=== PATIENT | female | born 1955 | race Caucasian/White ===

== ENCOUNTER → 2017-03-01 | Outpatient (CLI) | payer BC ==
[2017-03-01 12:34] LABS: Basophils % (A) 0 %; CH 29.9; CHCM 32.3; Eosinophils # (A) 0.1 k/uL (0-0.7); Eosinophils % (A) 2 %; HDW 2.27; HGB 12.9 gm/dL (11.4-16.0); Luc # (Auto) 0.11; Luc % (Auto) 2; Lymphocytes # (A) 1.7 k/uL (1.0-4.8); Lymphocytes % (A) 25 %; MCH 29.3 pg (25.0-35.0); MCHC 31.5 g/dL (31.0-37.0); MCV 92.8 fL (80.0-100.0); Mean Platelet Volume 7.1; Monocytes # (A) 0.3 k/uL (0-1.0); Monocytes % (A) 5 %; Neutrophils # (A) 4.4 k/uL (1.3-7.7); Neutrophils % (A) 66 %; RBC 4.42 m/uL (3.80-5.40); RDW 13.5 % (11.5-15.5); WBC 6.6 k/uL (3.8-10.6)
== END | disposition home or self-care (01) ==
LOC: LABPAT 11:49
PROVIDERS: ATTEND Obstetrics & Gynecology
DX: Z01.810 Encounter for preprocedural cardiovascular examination (principal); I10 Essential (primary) hypertension; N95.0 Postmenopausal bleeding; R93.8 Abnormal findings on diagnostic imaging of other specified body structures; Z01.812 Encounter for preprocedural laboratory examination
CPT/HCPCS: 85025; 93005

== ENCOUNTER → 2017-03-06 | Day surgery (SDC) | payer BC ==
[2017-03-02 10:44] VITALS: BMI 33.2
[~2017-03-06] MED LIST: DEXAMETHASONE SOD PHOSPHATE 10 MG/ML 1 ML VIAL IV ONE; HYDROmorphone 1 MG/ML 1 ML SYRINGE IVP PRN; KETOROLAC 30 MG/ML 1 ML VIAL ONE; LACTATED RINGERS 1,000 ML IV SCH; LIDOCAINE 1% 20 ML VIAL (10MG/ML) FOR IV START INTRADERMA PRN; LIDOCAINE 1% INJ 10MG/ML (20 ML MDV) ONE; MIDAZOLAM 2 MG/2 ML VIAL IV PRN; MIDAZOLAM 2 MG/2 ML VIAL ONE; ONDANSETRON 4 MG/2 ML VIAL IVP ONE; PROPOFOL 10 MG/ML 20 ML VIAL IV ONE; Pre Op ABX Message 1 EACH MISC MISCELLANE ONE; SCOPOLAMINE 1.5MG/72HR PATCH TRANSDERM ONE; fentaNYL (PF) 50 MCG/ML 2 ML AMP ONE
[2017-03-06 10:44] LABS: Glucose,Whole Blood 114 mg/dL (75-99)
--- NOTE | 2017-03-06 11:24 | P.OP ---
Date of Procedure: 03/06/17 Preoperative Diagnosis: Thickened endometrium sonographically in postmenopausal woman Postoperative Diagnosis: Pathology pending, abundant polypoid endometrial tissue. Procedure(s) Performed: Hysteroscopy, fractional D and C Implants: Anesthesia: GETA Surgeon: Darlene Giles Executive Asst #1: Stated None Estimated Blood Loss (ml): 25 IV fluids (ml): 300 Urine output (ml): 50 Pathology: other (Endocervical and endometrial curettings under separate cover) Condition: stable Disposition: PACU Indications for Procedure: Operative Findings: Description of Procedure: Patient is brought to the operating suite where a general anesthetic is administered without difficulty. She's placed in the dorsal lithotomy position. The appropriate timeout is performed to assure proper patient and procedural identification. Antibiotics are not deemed necessary. The cervix, vagina and perineal bodies are all prepped and draped in usual sterile fashion. Examination under anesthesia reveals an anteverted uterus that is mobile and smooth, negative adnexa bilaterally. Bladder is drained for 30 mL of clear yellow urine. Weighted speculum was placed into the vagina. Anterior lip of the cervix is grasped with a double-tooth tenaculum. Endocervical curettings are performed and sent to pathology. At this time the uterus sounds to a depth of 10 cm in the anteverted position. The hysteroscope was then introduced and saline is injected to distend the cavity. In inspecting the cavity there are multiple polypoid fragments of tissue noted. No obvious fibroids. The hysteroscope was removed. The cervix is then dilated to 12 mm using the Hanks dilators. A medium sharp curette is used and the cavity was gently and systematically dilated. A large amount of polypoid tissue. Polyp forceps are used and more tissue was removed. Hysteroscope was replaced and the cavity appears to be clear. All sponge needle and enhancement counts are correct at the end of the procedure. Patient is brought back to the recovery room in stable condition with vital signs including blood pressure 126/66, pulse 59, 98% O2 saturation. Toradol is given prior to leaving the operative suite. Complications: none
[2017-03-06 11:33] VITALS: TEMP 97.4
[2017-03-06 12:24] VITALS: RESP 16
[2017-03-06 12:57] VITALS: BP 128/57; PULSE 48
== END | disposition home or self-care (01) ==
LOC: OR 09:52
PROVIDERS: ATTEND Obstetrics & Gynecology
DX: C54.1 Malignant neoplasm of endometrium (principal); N84.1 Polyp of cervix uteri; N85.02 Endometrial intraepithelial neoplasia [EIN]; I10 Essential (primary) hypertension; Z79.899 Other long term (current) drug therapy
CPT/HCPCS: 88305; 58558; J2250; J1100; J2405; J2001; J3010; J1885; J2704

== ENCOUNTER → 2017-04-17 | Outpatient (CLI) | payer BC ==
--- NOTE | 2017-04-23 08:59 | MM ---
Reason for exam: additional evaluation requested from prior study. Last mammogram was performed 9 months ago. History: Patient is postmenopausal and history of other cancer. Family history of breast cancer in paternal grandmother at age 50 and breast cancer in maternal grandmother at age 50. Benign excisional biopsy of the right breast. Physical Findings: Nurse did not find any significant physical abnormalities on exam. MG Diagnostic Mammo w CAD HORTENSIA Bilateral CC and MLO view(s) were taken. Prior study comparison: July 03, 2016, bilateral MG screening mammo w CAD. May 06, 2015, bilateral MG screening mammo w CAD. December 31, 2013, left breast MG diagnostic mammo LT w CAD. June 30, 2013, bilateral digital screening mammo w/CAD. June 26, 2011, bilateral digital screening mammo w/CAD. There are scattered fibroglandular densities. Asymmetric density posteriorly and centrally on the left MLO view appears more defined. Summation shadow is possible but further evaluation is recommended. No significant change on the CC view. ASSESSMENT: Incomplete: need additional imaging evaluation, BI-RAD 0 RECOMMENDATION: Special view mammogram of the left breast.
== END ==
LOC: RADMAMWWP 14:27
PROVIDERS: ATTEND Internal Medicine Hematology & Oncology
DX: R92.8 Other abnormal and inconclusive findings on diagnostic imaging of breast (principal)

== ENCOUNTER → 2017-04-25 | Outpatient (CLI) | payer BC ==
--- NOTE | 2017-04-26 07:49 | MM ---
Reason for exam: additional evaluation requested from abnormal screening. Last mammogram was performed less than 1 month ago. History: Patient is postmenopausal and history of other cancer. Family history of breast cancer in paternal grandmother at age 50 and breast cancer in maternal grandmother at age 50. Benign excisional biopsy of the right breast. Physical Findings: Nurse did not find any significant physical abnormalities on exam. MG Follow Up LT No Charge LM and spot compression MLO view(s) were taken of the left breast. Prior study comparison: April 17, 2017, bilateral MG diagnostic mammo w CAD HORTENSIA. July 03, 2016, bilateral MG screening mammo w CAD. May 06, 2015, bilateral MG screening mammo w CAD. June 26, 2011, bilateral digital screening mammo w/CAD. There are scattered fibroglandular densities. The asymmetric density disperses completely on the spot MLO view. No significant new findings when compared with previous films. These results were verbally communicated with the patient and result sheet given to the patient on 04/25/17. ASSESSMENT: Negative, BI-RAD 1 RECOMMENDATION: Routine screening mammogram of both breasts in 1 year.
== END | disposition home or self-care (01) ==
LOC: RADMAMWWP 14:31
PROVIDERS: ATTEND Internal Medicine Hematology & Oncology
DX: R92.8 Other abnormal and inconclusive findings on diagnostic imaging of breast (principal)

== ENCOUNTER → 2017-10-04 | Outpatient (CLI) | payer BC ==
[2017-10-04 17:07] LABS: Basophils % (A) 0 %; Eosinophils % (A) 1 %; HCT 32.8 % (34.0-46.0); HGB 11.3 gm/dL (11.4-16.0); Lymphocytes # (A) 0.4 k/uL (1.0-4.8); Lymphocytes % (A) 10 %; MCH 31.4 pg (25.0-35.0); MCHC 34.3 g/dL (31.0-37.0); MCV 91.6 fL (80.0-100.0); Mean Platelet Volume 6.7; Monocytes # (A) 0.3 k/uL (0-1.0); Monocytes % (A) 6 %; Neutrophils # (A) 3.5 k/uL (1.3-7.7); Neutrophils % (A) 81 %; Platelet Count 231 k/uL (150-450); Poikilocytosis Slight; RBC 3.58 m/uL (3.80-5.40); RDW 15.4 % (11.5-15.5); WBC 4.3 k/uL (3.8-10.6)
[2017-10-04 17:16] LABS: ALT 27 U/L (9-52); AST 21 U/L (14-36); Albumin 4.4 g/dL (3.5-5.0); Alkaline Phosphatase 89 U/L (38-126); Anion Gap 12 mmol/L; Blood Urea Nitrogen 12 mg/dL (7-17); Calcium 10.3 mg/dL (8.4-10.2); Carbon Dioxide 30 mmol/L (22-30); Chloride 98 mmol/L (98-107); Glucose 125 mg/dL (74-99); Sodium 140 mmol/L (137-145); Total Bilirubin 0.8 mg/dL (0.2-1.3)
== END | disposition home or self-care (01) ==
LOC: LABWHC1 16:22
PROVIDERS: ATTEND Radiology Radiation Oncology
DX: C54.2 Malignant neoplasm of myometrium (principal)
CPT/HCPCS: 36415; 80053; 85025

== ENCOUNTER → 2017-10-31 | Outpatient (CLI) | payer BC ==
--- NOTE | 2017-10-31 15:01 | CT ---
EXAMINATION TYPE: CT ChestAbdPelvis w con DATE OF EXAM: 10/31/2017 COMPARISON: Outside CT 03/23/2017 HISTORY: 62-year-old female f/u endometrial carcinoma TECHNIQUE: Contiguous axial scanning of the chest, abdomen, and pelvis performed with IV Contrast, pa tient injected with 100 mL of Isovue 300. Delayed images through the kidneys were obtained. Coronal/s agittal reconstructions performed. CT DLP: 1482.7 mGycm Automated exposure control for dose reduction was used. FINDINGS: Chest: Focal asymmetry posterior lateral left breast remains unchanged from 03/23/2017. Heart upper limits of normal in size without pericardial effusion. Aorta normal caliber with conventional vessel branching anatomy. No thoracic lymphadenopathy by CT size criteria. Evaluation of the lungs shows mild dependent atelectasis at the lung bases. No consolidation or pleur al effusion. ABDOMEN: No focal liver lesion or biliary ductal dilatation. Portal venous system is patent. Gallbladder, adrenal glands, kidneys, spleen, and pancreas appear within normal limits. No dilated small bowel, free fluid, or free air. No mesenteric or retroperitoneal lymphadenopathy. Oral contrast has progressed to the mid transverse colon. There is mild overall stool burden. No saniya colonic inflammatory change. Pelvis: Interval hysterectomy and bilateral salpingo-oophorectomy. There is some nodularity measuring 1.1 cm and smaller in both adnexa which seems to be been present on the presurgical study where these resemb le periuterine varices. No abnormal fluid collection in the pelvis or pelvic lymphadenopathy seen. Bones: Mild degenerative changes at the pubic symphysis and hips. Facet arthropathy lower lumbar spine. No o sseous destructive process seen. IMPRESSION: 1. INTERVAL HYSTERECTOMY AND BILATERAL SALPINGO-OOPHORECTOMY. 2. SOME NODULARITY MEASURING 1.1 CM AND SMALLER IN BOTH ADNEXA WHICH SEEMS TO BE PRESENT ON THE PRESU RGICAL STUDY WHERE THEY RESEMBLED PARAUTERINE VARICES. A PRECAUTIONARY SHORT INTERVAL FOLLOW-UP CAN B E PERFORMED. 3. OTHERWISE, NO FINDINGS OF METASTATIC DISEASE IN THE CHEST, ABDOMEN, OR PELVIS.
== END ==
LOC: RADCTMAIN 11:28
PROVIDERS: ATTEND Internal Medicine Hematology & Oncology
DX: C54.9 Malignant neoplasm of corpus uteri, unspecified (principal); N94.89 Other specified conditions associated with female genital organs and menstrual cycle; Z90.710 Acquired absence of both cervix and uterus
CPT/HCPCS: 71260; 74177; Q9967

== ENCOUNTER → 2018-05-15 | Outpatient (CLI) | payer BC ==
--- NOTE | 2018-05-15 13:56 | CT ---
EXAMINATION TYPE: CT ChestAbdPelvis w con DATE OF EXAM: 05/15/2018 COMPARISON: Previous CT 10/31/2017 HISTORY: Follow up scan. no complaints at time of scan CT DLP: 1773.4 mGycm Automated exposure control for dose reduction was used. CONTRAST: CT scan of the chest, abdomen and pelvis is performed with Oral Contrast and with IV Contrast, patien t injected with 100 mL of Isovue 300. FINDINGS: LUNGS: The lungs are grossly clear, there is no concerning parenchymal mass or nodule identified. T here is no pleural effusion or pneumothorax seen. The tracheobronchial tree is patent. MEDIASTINUM: There are no greater than 1 cm hilar or mediastinal lymph nodes. No pericardial effusi on is seen. AORTA: No significant abnormality is seen. OTHER: No additional significant abnormality is seen. LIVER/GB: No significant change, liver shows low attenuation possibly due to hepatic steatosis, gallb ladder is normal. PANCREAS: No significant abnormality is seen. SPLEEN: No significant abnormality is seen. ADRENALS: No significant abnormality is seen. KIDNEYS: No significant abnormality is seen. REPRODUCTIVE ORGANS: Postop changes again noted, appearance is stable. BOWEL: No significant abnormality is seen. FREE AIR: No Free Air visible. ASCITES: None seen. RETROPERITONEAL ADENOPATHY: No retroperitoneal adenopathy is seen. LYMPH NODES: No greater than 1 cm abdominal or pelvic lymph nodes are appreciated. URINARY BLADDER: No significant abnormality is seen. PELVIC ADENOPATHY: None visualized. OSSEOUS STRUCTURES: No significant interval change is seen. IMPRESSION: No evident recurrence, no evident metastasis.
== END ==
LOC: RADCTMAIN 11:22
PROVIDERS: ATTEND Internal Medicine Hematology & Oncology
DX: C54.9 Malignant neoplasm of corpus uteri, unspecified (principal)
CPT/HCPCS: 71260; 74177; Q9967

== ENCOUNTER → 2018-05-31 | Outpatient (CLI) | payer BC ==
--- NOTE | 2018-06-03 09:10 | MM ---
Reason for exam: screening (asymptomatic). Last mammogram was performed 1 year and 1 month ago. History: Patient is postmenopausal and history of other cancer. Family history of breast cancer in paternal grandmother at age 50 and breast cancer in maternal grandmother at age 50. Benign excisional biopsy of the right breast. Physical Findings: A clinical breast exam by your physician is recommended on an annual basis and results should be correlated with mammographic findings. MG 3D Screening Mammo W/Cad Bilateral CC and MLO view(s) were taken. Prior study comparison: April 25, 2017, left breast MG follow up LT no charge. April 17, 2017, bilateral MG diagnostic mammo w CAD HORTENSIA. There are scattered fibroglandular densities. There is no discrete abnormality. No significant changes when compared with prior studies. ASSESSMENT: Negative, BI-RAD 1 RECOMMENDATION: Routine screening mammogram of both breasts in 1 year.
== END | disposition home or self-care (01) ==
LOC: RADMAMWWP 10:20
PROVIDERS: ATTEND Obstetrics & Gynecology
DX: Z12.31 Encounter for screening mammogram for malignant neoplasm of breast (principal); Z80.3 Family history of malignant neoplasm of breast
CPT/HCPCS: 77063; 77067

== ENCOUNTER 2018-08-21 08:55 | Day surgery (SDC) | payer BC ==
[2018-08-20 10:05] VITALS: BMI 33.5
[~2018-08-21 08:55] MED LIST changes: -DEXAMETHASONE SOD PHOSPHATE 10 MG/ML 1 ML VIAL IV ONE; -HYDROmorphone 1 MG/ML 1 ML SYRINGE IVP PRN; -KETOROLAC 30 MG/ML 1 ML VIAL ONE; -LIDOCAINE 1% INJ 10MG/ML (20 ML MDV) ONE; -MIDAZOLAM 2 MG/2 ML VIAL IV PRN; -MIDAZOLAM 2 MG/2 ML VIAL ONE; -ONDANSETRON 4 MG/2 ML VIAL IVP ONE; -PROPOFOL 10 MG/ML 20 ML VIAL IV ONE; -Pre Op ABX Message 1 EACH MISC MISCELLANE ONE; -SCOPOLAMINE 1.5MG/72HR PATCH TRANSDERM ONE; -fentaNYL (PF) 50 MCG/ML 2 ML AMP ONE
[2018-08-21 09:45] VITALS: TEMP 97.2
[2018-08-21] MEDS ORDERED: PROPOFOL 10 MG/ML 20 ML VIAL IV ONE (10:01)
[2018-08-21] MEDS ORDERED: fentaNYL (PF) 50 MCG/ML 2 ML AMP ONE (10:01)
[2018-08-21] MEDS ORDERED: MIDAZOLAM 2 MG/2 ML VIAL ONE (10:01)
[2018-08-21 10:25] VITALS: BP 121/69; PULSE 70; RESP 16
--- NOTE | 2018-08-21 10:26 | P.PCN ---
Date of Procedure: 08/21/18 Procedure(s) Performed: BRIEF HISTORY: Patient is a 63-year-old pleasant white female, scheduled for an elective colonoscopy as a part of screening for colorectal neoplasia. Her last colonoscopy was 11 years ago. PROCEDURE PERFORMED: Colonoscopy with cold biopsy. PREOPERATIVE DIAGNOSIS: Screening for colon cancer. IV sedation per Anesthesia. PROCEDURE: After informed consent was obtained, the patient, was brought into the endoscopy unit. IV sedation was administered by Anesthesia under continuous monitoring. Digital rectal examination was normal. Initially the Olympus CF- 160 flexible video colonoscope was then inserted in the rectum, gradually advanced into the cecum without any difficulty. Careful examination was performed as the scope was gradually being withdrawn. Ileocecal valve and the appendiceal orifice were visualized and appeared normal. Prep was excellent. Mucosa of the cecum appeared normal. There was a 2-3 mm small sessile ascending colon polyp that was removed by cold biopsy. Rest of the ascending colon, transverse colon, descending colon, sigmoid colon, and rectum appeared normal. Scattered similar diagnoses seen. In the distal sigmoid colon there was a 5 mm sessile polyp removed by cold biopsy. Retroflexion was performed in the rectum and no lesions were seen. The patient tolerated the procedure well. IMPRESSION: 2-3 millimeter sessile ascending colon polyp status post removal by cold biopsy 5 mm sessile sigmoid colon polyp status post removal by cold biopsy Small diverticulosis. RECOMMENDATIONS: Findings of this examination were discussed with the patient as well as a family. She was advised to follow with the biopsy results. If the biopsy shows adenoma, she can have a repeat colonoscopy in 5 years
== END 2018-08-21 11:00 | disposition home or self-care (01) ==
LOC: ORWHC2ENDO 08:55
PROVIDERS: ATTEND Internal Medicine Gastroenterology
DX: Z12.11 Encounter for screening for malignant neoplasm of colon (principal); D12.2 Benign neoplasm of ascending colon; D12.5 Benign neoplasm of sigmoid colon; I10 Essential (primary) hypertension; K57.30 Diverticulosis of large intestine without perforation or abscess without bleeding; Z79.899 Other long term (current) drug therapy; Z88.1 Allergy status to other antibiotic agents; Z85.42 Personal history of malignant neoplasm of other parts of uterus; Z92.21 Personal history of antineoplastic chemotherapy; Z92.3 Personal history of irradiation
CPT/HCPCS: 88305; 45380; J2250; J3010; J2704

== ENCOUNTER → 2019-07-02 | Outpatient (CLI) | payer BC ==
--- NOTE | 2019-07-03 13:22 | MM ---
Reason for exam: screening (asymptomatic). Last mammogram was performed 1 year and 1 month ago. History: Patient is postmenopausal and has history of other cancer at age 62. Family history of breast cancer in paternal grandmother at age 50 and breast cancer in maternal grandmother at age 50. Benign excisional biopsy of the right breast. Physical Findings: A clinical breast exam by your physician is recommended on an annual basis and results should be correlated with mammographic findings. MG Screening Mammo w CAD Bilateral CC and MLO view(s) were taken. Prior study comparison: May 31, 2018, bilateral MG 3d screening mammo w/cad. April 25, 2017, left breast MG follow up LT no charge. There are scattered fibroglandular densities. Benign appearing bilateral calcifications. No suspicious abnormality. No significant changes when compared with prior studies. ASSESSMENT: Benign, BI-RAD 2 RECOMMENDATION: Routine screening mammogram of both breasts in 1 year.
== END | disposition home or self-care (01) ==
LOC: RADMAMWWP 11:14
PROVIDERS: ATTEND Obstetrics & Gynecology
DX: Z12.31 Encounter for screening mammogram for malignant neoplasm of breast (principal); Z80.3 Family history of malignant neoplasm of breast
CPT/HCPCS: 77067

== ENCOUNTER → 2020-05-21 | Outpatient (CLI) | payer BC ==
[2020-05-21 12:55] LABS: African American GFR (CKD) >90 (>60 ml/min/1.73 sqM); Blood Urea Nitrogen 16 mg/dL (7-17); Non-African American GFR(CKD) >90 (>60 ml/min/1.73 sqM)
--- NOTE | 2020-05-24 00:58 | CT ---
EXAMINATION TYPE: CT ChestAbdPelvis w con DATE OF EXAM: 05/21/2020 COMPARISON: CT chest abdomen pelvis 05/15/2018 HISTORY: Endometrial cancer, observation for mets CT DLP: 1855.70 mGycm Automated exposure control for dose reduction was used. CONTRAST: CT scan of the chest, abdomen and pelvis is performed with Oral Contrast and with IV Contrast, patien t injected with 100 ml mL of Isovue 300. FINDINGS: LUNGS: Lungs are grossly clear. No concerning parenchymal mass or nodule identified. No pleural effus ion. No pneumothorax. The tracheobronchial tree is patent. MEDIASTINUM/SOFT TISSUES: No axillary, hilar, or mediastinal lymphadenopathy greater than 1 cm. Cardi ac size is normal. No pericardial effusion. No thoracic aortic aneurysm. LIVER: Normal. BILIARY SYSTEM: Normal. PANCREAS: Normal. SPLEEN: Normal. ADRENALS: Normal. KIDNEYS: Normal. BOWEL: No obstruction or thickening. PERITONEUM: No pneumoperitoneum. No free fluid. LYMPH NODES: No lymphadenopathy. PELVIS: Normal urinary bladder. Status post hysterectomy. VASCULATURE: No abdominal aortic aneurysm. MUSCULOSKELETAL: No aggressive osseous destructive lesions. IMPRESSION: No evidence of recurrent or metastatic endometrial cancer of the chest, abdomen, or pelvis.
== END | disposition home or self-care (01) ==
LOC: RADCTMAIN 11:57
PROVIDERS: ATTEND Internal Medicine Hematology & Oncology
DX: C54.9 Malignant neoplasm of corpus uteri, unspecified (principal)
CPT/HCPCS: 82565; 84520; 71260; 74177; 36415; Q9967

== ENCOUNTER → 2020-09-17 | Outpatient (CLI) | payer BC ==
--- NOTE | 2020-09-21 10:24 | MM ---
Reason for exam: screening (asymptomatic). Last mammogram was performed 1 year and 3 months ago. History: Patient is postmenopausal and has history of other cancer at age 62. Family history of breast cancer in paternal grandmother at age 50 and breast cancer in maternal grandmother at age 50. Benign excisional biopsy of the right breast. Physical Findings: A clinical breast exam by your physician is recommended on an annual basis and results should be correlated with mammographic findings. MG Screening Mammo w CAD Bilateral CC and MLO view(s) were taken. Prior study comparison: July 02, 2019, bilateral MG screening mammo w CAD. May 31, 2018, bilateral MG 3d screening mammo w/cad. There are scattered fibroglandular densities. Scattered benign punctate calcifications are unchanged. No significant changes when compared with prior studies. ASSESSMENT: Negative, BI-RAD 1 RECOMMENDATION: Routine screening mammogram of both breasts in 1 year.
== END ==
LOC: RADMAMWWP 13:47
PROVIDERS: ATTEND Obstetrics & Gynecology
DX: Z12.31 Encounter for screening mammogram for malignant neoplasm of breast (principal); Z80.3 Family history of malignant neoplasm of breast; Z78.0 Asymptomatic menopausal state
CPT/HCPCS: 77067

== ENCOUNTER → 2021-05-09 | Outpatient (CLI) | payer BC ==
--- NOTE | 2021-05-09 22:54 | CT ---
EXAMINATION TYPE: CT ChestAbdPelvis w con DATE OF EXAM: 05/09/2021 INDICATION: Malignant neoplasm of corpus uteri COMPARISON: 05/21/2020 CT DLP: 2029.8 mGycm CONTRAST: Performed with Oral Contrast and with IV Contrast, patient injected with 100 mL of Isovue 300. TECHNIQUE: Axial images at 5 mm thick sections. Reconstructed images in the coronal plane. Delayed images through the kidneys. FINDINGS: CT CHEST: Portion of the thyroid visualized is normal. No suspicious lung nodules or focal infiltrates are present. No enlarged mediastinal or hilar adenopathy is evident. The ascending aorta diameter at the level of the main pulmonary artery is 3.6 cm. The main pulmonary artery diameter at the bifurcation is 2.[address] ABDOMEN: Liver: There is moderate fatty infiltration to the liver. No discrete masses are evident. Spleen: Normal Pancreas: Mild atrophy may be present Adrenal glands: The adrenal glands are normal. Gallbladder: Normal Kidneys: No masses are evident. No hydronephrosis is present. No cysts are present. Delayed images were obtained through the kidneys, which remain unremarkable. Aorta: Vascular calcification is within the aorta. Inferior vena cava: Normal. CT PELVIS: Small right inguinal hernia containing mesenteric fat may be present. Loops of bowel within the abdomen and pelvis are normal. There are loops of bowel which are incom pletely distended or lack oral contrast limiting their evaluation. Appendix: Normal as visualized. Urinary bladder: Normal. Genitourinary structures: Uterus and ovaries are not identified. No abnormal pelvic adenopathy or flu id collections are evident. Osseous structures: No suspicious lytic or sclerotic lesions. Facet degenerative changes of lower lum bar spine. IMPRESSIONS: 1. No suspicious changes suggest recurrent or metastatic uterine cancer. 2. Moderate fatty infiltration of the liver
== END | disposition home or self-care (01) ==
LOC: RADCTMAIN 10:22
PROVIDERS: ATTEND Internal Medicine Hematology & Oncology
DX: C54.9 Malignant neoplasm of corpus uteri, unspecified (principal); K76.0 Fatty (change of) liver, not elsewhere classified
CPT/HCPCS: 71260; 74177; Q9967

== ENCOUNTER 2021-06-18 22:59 | Emergency (ER) | payer BC ==
--- NOTE | 2021-06-18 23:30 | ED ---
General Adult HPI - General Stated complaint: Covid+/JAMES Time Seen by Provider: 06/18/21 23:28 - History of Present Illness Initial comments: 66 year-old female patient presents for evaluation of worsening shortness of breath, body aches, and weakness after testing positive for COVID on Sunday. Symptoms started Sunday06/12/21. States she has had cough. Denies any vomiting or diarrhea. Reports dizziness and lightheadedness. Reports intermittent fever or chills. Denies rash. Patient denies any recent chest pain, abdominal pain, constipation, back pain, numbness, tingling, dizziness, weakness, hematuria, dysuria, urinary urgency, urinary frequency, headache, visual changes, or any other complaints.s - Related Data Home Medications Medication Instructions Recorded Confirmed Losartan/Hydrochlorothiazide 1 each PO HS 03/02/17 08/20/18 [Losartan-Hctz 100-25 mg Tab] Black Seed Oil 1,000 mg PO BID 08/20/18 08/20/18 Cannabidiol (Cbd) [Epidiolex] 1 dose PO DAILY 08/20/18 08/20/18 Turmeric W/ Black Pepper 1 dose PO DAILY 08/20/18 08/20/18 Previous Rx's Medication Instructions Recorded Dexamethasone 6 mg PO DAILY #9 tablet 06/19/21 Ondansetron [Zofran ODT] 4 mg PO Q8HR PRN #10 tab 06/19/21 guaiFENesin-DM 600/30MG [Mucinex 1 each PO Q12HR #10 tab 06/19/21 Dm] Allergies Allergy/AdvReac Type Severity Reaction Status Date / Time amoxicillin [From Augmentin] AdvReac states Verified 06/18/21 23:30 "doesn't work for me" clavulanic acid AdvReac states Verified 06/18/21 23:30 [From Augmentin] "doesn't work for me" Review of Systems ROS Statement: Those systems with pertinent positive or pertinent negative responses have been documented in the HPI. ROS Other: All systems not noted in ROS Statement are negative. Past Medical History Past Medical History: Cancer, Hypertension Additional Past Medical History / Comment(s): uterine CA-radiation May 2018,chemo 2017 History of Any Multi-Drug Resistant Organisms: None Reported Past Surgical History: Section, Hysterectomy Additional Past Surgical History / Comment(s): c sections x3,lump removed breast Past Anesthesia/Blood Transfusion Reactions: No Reported Reaction Additional Past Anesthesia/Blood Transfusion Reaction / Comment(s): no hx blood transfusion Past Psychological History: No Psychological Hx Reported Past Alcohol Use History: Rare Past Drug Use History: None Reported - Past Family History Mother Family Medical History: Deep Vein Thrombosis (DVT) Father Family Medical History: Cancer General Exam General appearance: alert, in no apparent distress, other (This is a well- developed, well-nourished adult female in no acute distress.) Eye exam: Present: normal appearance, PERRL, EOMI. Absent: scleral icterus, conjunctival injection, periorbital swelling ENT exam: Present: normal exam, normal oropharynx, mucous membranes moist Respiratory exam: Present: normal lung sounds bilaterally, other (No accessory muscle use, able to speak full sentences.). Absent: respiratory distress, wheezes, rales, rhonchi, stridor Cardiovascular Exam: Present: regular rate, normal rhythm, normal heart sounds. Absent: systolic murmur, diastolic murmur, rubs, gallop, clicks GI/Abdominal exam: Present: soft, normal bowel sounds. Absent: distended, tenderness, guarding, rebound, rigid Neurological exam: Present: alert, oriented X3, CN II-XII intact Psychiatric exam: Present: normal affect, normal mood Skin exam: Present: warm, dry, intact, normal color. Absent: rash Course Vital Signs 06/18/21 06/19/21 06/19/21 23:25 03:45 05:01 Temperature 100.8 F H 100.3 F H Pulse Rate 93 92 77 Respiratory 26 H 20 18 Rate Blood Pressure 141/76 145/73 124/63 O2 Sat by Pulse 92 L 91 L 92 L Oximetry Medical Decision Making - Medical Decision Making 66-year-old female patient presented to the emergency department today for evaluation of worsening shortness of breath and lightheadedness after testing positive for COVID-19. Chest x-ray was obtained and showed mild heart failure versus interstitial pneumonia, this is felt to be more interstitial pneumonia due to positive COVID-19 status and symptoms. She did meet criteria to receive monoclonal antibodies. Discussed risks versus benefits. She tolerated the infusion well. She is given additional medications for relief. She will be discharged follow up with primary care physician for recheck in 1-2 days. Return parameters were discussed in detail. She verbalizes understanding and agrees with this plan. My attending is Dr. Dominguez. - Lab Data Lab Results 06/18/21 Range/Units 23:46 Coronavirus (PCR) Detected A (Not Detectd) - Radiology Data Radiology results: report reviewed, image reviewed Two-view x-ray of the chest is obtained. Report is reviewed in its entirety. Impression by Dr. Barrios shows mild pulmonary interstitial edema and small pleural effusions. This could be acute mild heart failure. Interstitial pneumonia is also possible. Disposition Clinical Impression: Pneumonia due to COVID-19 virus Disposition: HOME SELF-CARE Condition: Good Instructions (If sedation given, give patient instructions): Coronavirus Disease 2019 (COVID-19), Viral Pneumonia (ED) Additional Instructions: Tips to help you feel better: -Maintain adequate fluid intake - especially water. -Rest, you are healing your body will require extra sleep. -Eat even if you do not feel like it - broth, jello, toast are fine if you cannot eat full meals. -Take tylenol and motrin alternating (if you have no allergies or have not been instructed to avoid these medications) to help with body aches and fevers. -Obtain over the counter vitamin C, zinc, and vitamin D3. -Take medications as prescribed. Follow-up with your primary care physician for recheck in 1-2 days. Return for any new, worsening, or concerning symptoms. Prescriptions: Dexamethasone 6 mg PO DAILY #9 tablet guaiFENesin-DM 600/30MG [Mucinex Dm] 1 each PO Q12HR #10 tab Ondansetron [Zofran ODT] 4 mg PO Q8HR PRN #10 tab PRN Reason: Nausea Is patient prescribed a controlled substance at d/c from ED?: No Referrals: Roshan Doran MD [Primary Care Provider] - 1-2 days
--- NOTE | 2021-06-18 23:57 | XR ---
EXAMINATION TYPE: XR chest 2V DATE OF EXAM: 06/18/2021 COMPARISON: NONE HISTORY: Short of breath TECHNIQUE: FINDINGS: There is some mild pulmonary interstitial edema. Heart size is fairly normal. There is slig ht blunting of the costophrenic angles. There are no hilar masses. IMPRESSION: Mild pulmonary interstitial edema and small pleural effusions. This could be acute mild h eart failure. Interstitial pneumonia also possible.
[2021-06-19] MEDS ORDERED: ONDANSETRON 4 MG/2 ML VIAL IVP STA (02:02)
[2021-06-19] MEDS ORDERED: DEXAMETHASONE SOD PHOSPHATE 10 MG/ML 1 ML VIAL IVP STA (02:02)
[2021-06-19] MEDS ORDERED: guaiFENesin-DM 600/30MG 1 EACH TAB.ER.12H PO STA (02:02)
[2021-06-19] MEDS ORDERED: ACETAMINOPHEN TAB 500 MG TAB PO STA (02:09)
[2021-06-19] MEDS ORDERED: SOTROVIMAB (EUA) 500 MG in SODIUM CHLORIDE 0.9% 100 ML IVPB ONE (02:30)
[2021-06-19] MEDS ORDERED: SODIUM CHLORIDE 0.9% 50 ML IVPB ONE (02:30)
[2021-06-19 05:04] VITALS: BP 124/63; PULSE 77; RESP 18; TEMP 100.3
== END 2021-06-19 05:04 | disposition home or self-care (01) ==
LOC: EC 22:59
DX: U07.1 COVID-19 (principal); J12.82 Pneumonia due to coronavirus disease 2019; I10 Essential (primary) hypertension; Z79.899 Other long term (current) drug therapy; Z88.0 Allergy status to penicillin
CPT/HCPCS: 87635; 71046; 99285; 96374; 96375; J1100; J2405; Q0247

== ENCOUNTER 2021-06-29 14:54 | Inpatient (IN) | payer BC ==
[2021-06-29] MEDS ORDERED: SODIUM CHLORIDE 0.9% 500 ML 500 ML IV STA (15:58)
[2021-06-29] MEDS ORDERED: methylPREDNISolone SOD SUCCI 125 MG/2 ML VIAL IV STA (15:58)
[2021-06-29] MEDS ORDERED: ALBUTEROL HFA INHALER INHALATION STA (15:58)
--- NOTE | 2021-06-29 16:03 | ED ---
General Adult HPI - General Chief complaint: Shortness of Breath Stated complaint: Covid, JAMES Time Seen by Provider: 06/29/21 15:35 Source: patient, RN notes reviewed, old records reviewed Mode of arrival: wheelchair Limitations: no limitations - History of Present Illness Initial comments: This is a 66-year-old female who presents emergency Department stating she's had difficulty breathing since she was diagnosed with COVID approximately 2 weeks ago. Patient states she got the monoclonal antibodies and since his been having difficulty breathing and her pulse ox is been in the 80s today she states it was low as 80% at home. Patient states she still coughing but no sputum production. Patient denies any fever chills. Patient denies any chest pain or palpitations. Patient denies abdominal pain patient denies nausea vomiting diarrhea. Patient states she was sent home steroids but she has completed those. Patient denies any swelling to the legs or calf tenderness. - Related Data Home Medications Medication Instructions Recorded Confirmed Ascorbic Acid [Vitamin C] 1,000 mg PO DAILY 06/29/21 06/29/21 Cholecalciferol [Vitamin D3 (25 25 mcg PO DAILY 06/29/21 06/29/21 Mcg = 1000 Iu)] Elderberry Fruit and Flower [Black 1 cap PO DAILY 06/29/21 06/29/21 Elderberry 575 mg Cap] Losartan Potassium 100 mg PO HS 06/29/21 06/29/21 Zinc Gluconate [Zinc] 50 mg PO DAILY 06/29/21 06/29/21 hydroCHLOROthiazide 25 mg PO DIRECTED 06/29/21 06/29/21 Allergies Allergy/AdvReac Type Severity Reaction Status Date / Time amoxicillin [From Augmentin] AdvReac states Verified 06/29/21 17:41 "doesn't work for me" clavulanic acid AdvReac states Verified 06/29/21 17:41 [From Augmentin] "doesn't work for me" Review of Systems ROS Statement: Those systems with pertinent positive or pertinent negative responses have been documented in the HPI. ROS Other: All systems not noted in ROS Statement are negative. Past Medical History Past Medical History: Cancer, Hypertension Additional Past Medical History / Comment(s): uterine CA-radiation May 2018,chemo 2017 History of Any Multi-Drug Resistant Organisms: None Reported Past Surgical History: Section, Hysterectomy Additional Past Surgical History / Comment(s): c sections x3,lump removed breast Past Anesthesia/Blood Transfusion Reactions: No Reported Reaction Additional Past Anesthesia/Blood Transfusion Reaction / Comment(s): no hx blood transfusion Past Psychological History: No Psychological Hx Reported Smoking Status: Never smoker Past Alcohol Use History: Rare Past Drug Use History: None Reported - Past Family History Mother Family Medical History: Deep Vein Thrombosis (DVT) Father Family Medical History: Cancer General Exam - General Exam Comments Initial Comments: GENERAL: Patient is well-developed and well-nourished. Patient is nontoxic and well- hydrated and is in mild distress. ENT: Neck is soft and supple. No significant lymphadenopathy is noted. Oropharynx is clear. Moist mucous membranes. Neck has full range of motion without eliciting any pain. EYES: The sclera were anicteric and conjunctiva were pink and moist. Extraocular movements were intact and pupils were equal round and reactive to light. Eyelids were unremarkable. PULMONARY: Patient has crackles bilaterally. CARDIOVASCULAR: There is a regular rate and rhythm without any murmurs gallops or rubs. ABDOMEN: Abdomen is nontender SKIN: Skin is clear with no lesions or rashes and otherwise unremarkable. NEUROLOGIC: Patient is alert and oriented x3. Cranial nerves II through XII are grossly intact. Motor and sensory are also intact. Normal speech, volume and content. Symmetrical smile. MUSCULOSKELETAL: Normal extremities with adequate strength and full range of motion. LYMPHATICS: No significant lymphadenopathy is noted PSYCHIATRIC: Normal psychiatric evaluation. Limitations: no limitations Course Vital Signs 06/29/21 06/29/21 06/29/21 15:37 16:05 17:00 Temperature 98.8 F Pulse Rate 100 95 84 Respiratory 22 20 16 Rate Blood Pressure 107/67 121/86 139/75 O2 Sat by Pulse 89 L 92 L 93 L Oximetry 06/29/21 06/29/21 18:00 18:10 Temperature Pulse Rate Respiratory Rate Blood Pressure O2 Sat by Pulse 80 L 92 L Oximetry Medical Decision Making - Medical Decision Making EKG shows normal sinus rhythm at 83 bpm IA interval 252 QRS is 88 QT interval 344 QTC is 404. Patient's EKG shows no ST segment elevation or depression CT of the chest shows no PE but diffuse COVID pneumonia patient received steroids in the emergency department as well as a breathing treatment. Patient to deoxygenated to 88 and was down to 80% when she ambulated to the bathroom. - Lab Data Result diagrams: 12/15/21 15:58 06/29/21 15:58 Lab Results 06/29/21 06/29/21 06/29/21 Range/Units 15:58 15:58 15:58 WBC 15.3 H (3.8-10.6) k/uL RBC 4.60 (3.80-5.40) m/uL Hgb 13.8 (11.4-16.0) gm/dL Hct 42.9 (34.0-46.0) % MCV 93.2 (80.0-100.0) fL MCH 29.9 (25.0-35.0) pg MCHC 32.1 (31.0-37.0) g/dL RDW 13.0 (11.5-15.5) % Plt Count 172 (150-450) k/uL MPV 7.2 Neutrophils % 86 % Lymphocytes % 7 % Monocytes % 3 % Eosinophils % 3 % Basophils % 0 % Neutrophils # 13.1 H (1.3-7.7) k/uL Lymphocytes # 1.1 (1.0-4.8) k/uL Monocytes # 0.5 (0-1.0) k/uL Eosinophils # 0.4 (0-0.7) k/uL Basophils # 0.0 (0-0.2) k/uL PT 10.0 (9.0-12.0) sec INR 0.9 (<1.2) APTT 21.8 L (22.0-30.0) sec D-Dimer 10.48 H (<0.60) mg/L FEU Sodium 134 L (137-145) mmol/L Potassium 5.3 H (3.5-5.1) mmol/L Chloride 104 (98-107) mmol/L Carbon Dioxide 24 (22-30) mmol/L Anion Gap 6 mmol/L BUN 27 H (7-17) mg/dL Creatinine 0.69 (0.52-1.04) mg/dL Est GFR (CKD-EPI)AfAm >90 (>60 ml/min/1.73 sqM) Est GFR (CKD-EPI)NonAf >90 (>60 ml/min/1.73 sqM) Glucose 121 H (74-99) mg/dL Lactic Ac Sepsis Rflx Plasma Lactic Acid Cecilio (0.7-2.0) mmol/L Calcium 8.9 (8.4-10.2) mg/dL Magnesium 1.9 (1.6-2.3) mg/dL Total Bilirubin 0.9 (0.2-1.3) mg/dL AST 30 (14-36) U/L ALT 24 (4-34) U/L Alkaline Phosphatase 93 (38-126) U/L Troponin I (0.000-0.034) ng/mL Total Protein 6.2 L (6.3-8.2) g/dL Albumin 3.3 L (3.5-5.0) g/dL 06/29/21 06/29/21 06/29/21 Range/Units 15:58 15:58 16:37 WBC (3.8-10.6) k/uL RBC (3.80-5.40) m/uL Hgb (11.4-16.0) gm/dL Hct (34.0-46.0) % MCV (80.0-100.0) fL MCH (25.0-35.0) pg MCHC (31.0-37.0) g/dL RDW (11.5-15.5) % Plt Count (150-450) k/uL MPV Neutrophils % % Lymphocytes % % Monocytes % % Eosinophils % % Basophils % % Neutrophils # (1.3-7.7) k/uL Lymphocytes # (1.0-4.8) k/uL Monocytes # (0-1.0) k/uL Eosinophils # (0-0.7) k/uL Basophils # (0-0.2) k/uL PT (9.0-12.0) sec INR (<1.2) APTT (22.0-30.0) sec D-Dimer (<0.60) mg/L FEU Sodium (137-145) mmol/L Potassium (3.5-5.1) mmol/L Chloride (98-107) mmol/L Carbon Dioxide (22-30) mmol/L Anion Gap mmol/L BUN (7-17) mg/dL Creatinine (0.52-1.04) mg/dL Est GFR (CKD-EPI)AfAm (>60 ml/min/1.73 sqM) Est GFR (CKD-EPI)NonAf (>60 ml/min/1.73 sqM) Glucose (74-99) mg/dL Lactic Ac Sepsis Rflx Y Plasma Lactic Acid Cecilio 2.5 H* (0.7-2.0) mmol/L Calcium (8.4-10.2) mg/dL Magnesium (1.6-2.3) mg/dL Total Bilirubin (0.2-1.3) mg/dL AST (14-36) U/L ALT (4-34) U/L Alkaline Phosphatase (38-126) U/L Troponin I <0.012 (0.000-0.034) ng/mL Total Protein (6.3-8.2) g/dL Albumin (3.5-5.0) g/dL Disposition Clinical Impression: Pneumonia due to COVID-19 virus Disposition: ADMITTED IP TO THIS HOSP Referrals: Roshan Doran MD [Primary Care Provider] - 1-2 days Time of Disposition: 18:53
[2021-06-29 16:08] LABS: Basophils % (A) 0 %; Eosinophils # (A) 0.4 k/uL (0-0.7); Eosinophils % (A) 3 %; HCT 42.9 % (34.0-46.0); HGB 13.8 gm/dL (11.4-16.0); Lymphocytes # (A) 1.1 k/uL (1.0-4.8); Lymphocytes % (A) 7 %; MCH 29.9 pg (25.0-35.0); MCHC 32.1 g/dL (31.0-37.0); MCV 93.2 fL (80.0-100.0); Mean Platelet Volume 7.2; Monocytes # (A) 0.5 k/uL (0-1.0); Monocytes % (A) 3 %; Neutrophils # (A) 13.1 k/uL (1.3-7.7); Neutrophils % (A) 86 %; Platelet Count 172 k/uL (150-450); WBC 15.3 k/uL (3.8-10.6)
[2021-06-29 16:20] LABS: ALT 24 U/L (4-34); AST 30 U/L (14-36); African American GFR (CKD) >90 (>60 ml/min/1.73 sqM); Albumin 3.3 g/dL (3.5-5.0); Alkaline Phosphatase 93 U/L (38-126); Anion Gap 6 mmol/L; Blood Urea Nitrogen 27 mg/dL (7-17); Calcium 8.9 mg/dL (8.4-10.2); Carbon Dioxide 24 mmol/L (22-30); Chloride 104 mmol/L (98-107); Glucose 121 mg/dL (74-99); Magnesium 1.9 mg/dL (1.6-2.3); Non-African American GFR(CKD) >90 (>60 ml/min/1.73 sqM); Potassium 5.3 mmol/L (3.5-5.1); Sodium 134 mmol/L (137-145); Total Bilirubin 0.9 mg/dL (0.2-1.3); Total Protein 6.2 g/dL (6.3-8.2)
[2021-06-29 16:50] LABS: INR 0.9 (<1.2); Partial Thromboplastin Time 21.8 sec (22.0-30.0)
[2021-06-29] MEDS ORDERED: SODIUM CHLORIDE 0.9% 1,000 ML IV ONE ×4 (16:57→22:27)
--- NOTE | 2021-06-29 17:54 | CT ---
EXAMINATION TYPE: CT chest angio for PE DATE OF EXAM: 06/29/2021 COMPARISON: CT 05/09/2021. Radiographs 06/18/2021. HISTORY: SOB, +covid, elevated d-dimer CT DLP: 556.6 mGycm Automated exposure control for dose reduction was used. CONTRAST: CT Chest for pulmonary embolism performed with with IV Contrast, patient injected with 80cc mL of Iso [place] 370. MIPS reformats were provided and reviewed. FINDINGS: LUNGS: There are bilateral diffuse marked patchy groundglass opacities. There is no pleural effusion or pneumothorax seen. The tracheobronchial tree is patent. MEDIASTINUM: There is limited evaluation of the pulmonary artery and subsegmental branches. Otherwise no CT evidence for pulmonary embolism. There are no greater than 1 cm hilar or mediastinal lymph no brennan. No pericardial effusion is seen. OTHER: Hepatic steatosis seen. No additional significant abnormality is seen. IMPRESSION: No acute PE. Progression of diffuse airspace disease, compatible with atypical pneumonia including caudate.
[2021-06-29] MEDS ORDERED: dexAMETHasone 2 MG TAB PO STA (19:03)
[2021-06-29] MEDS ORDERED: MELATONIN 5 MG TABLET PO PRN (22:30)
--- NOTE | 2021-06-29 22:31 | P.HPIM ---
History of Present Illness H&P Date: 06/29/21 The patient is a 66 yo F with a PMH of HTN who presents to the ED with complaints of SOB. The patient was initially diagnosed with COVID-19 2 weeks ago and notes that her symptoms never fully resolved, and that she now has gradually worsening shortness of breath. She reports exertional dyspnea and nonproductive cough along with myalgias. She denied abdominal pain, nausea, vomiting, diarrhea. Denied headaches, focal weakness, numbness, tingling. Chest CT in the emergency room was negative for PE with findings of atypical pneumonia. EKG revealed normal sinus rhythm at [address]/T-wave changes noted as reviewed by me. Laboratory evaluation was remarkable for leukocytosis of 15.3, sodium 134, potassium 5.3, BUN 27, lactic acid 2.5, troponin less than 0.012. The patient was hypoxic upon presentation to the emergency room with SpO2 of 89% on room air. Review of systems: Pertinent positives and negatives as discussed in HPI, a complete review of systems was performed and all other systems are negative. Physical examination: General: non toxic, no distress, appears at stated age, obese Derm: no unusual rashes/lesions no unusual ecchymoses, warm, dry Head: atraumatic, normocephalic, symmetric Eyes: EOMI, no lid lag, anicteric sclera, pupils equal round reactive to light ENT: Nose and ears atraumatic, no thrush, no pharyngeal erythema Neck: No thyromegaly, no cervical lymphadenopathy, trachea midline, supple Mouth: no lip lesion, mucus membranes moist Cardiovascular: S1S2 reg, no murmur, positive posterior tibial pulse bilateral, no edema, capillary refill less than 2 seconds Lungs: Diffuse rhonchi and rales, no accessory muscle use Abdominal: soft, nontender to palpation, no guarding, no appreciable organomegaly, normal bowel sounds Ext: no gross muscle atrophy, muscle strength 5 out of 5 in all 4 extremities grossly, no contractures, Neuro: CN II-XI grossly intact, light touch intact all 4 extremities, finger to nose within normal limits, Psych: Alert, oriented, appropriate affect Assessment/plan COVID-19 pneumonia with acute hypoxic respiratory failure -Continue Decadron -Supplemental oxygen -Zinc, vitamin C, vitamin D, melatonin -Pulmonary consult -Check pro calcitonin levels Prerenal azotemia -Continue with IV fluids Lactic acidosis -IV fluids and monitor for resolution Hyperkalemia -Suspected secondary to dehydration -Continue with IV hydration and monitor for now DVT prophylaxis -lovenox The patient is admitted with an anticipated greater than 2 midnight stay for evaluation of COVID CODE STATUS: Full Code Discussed with: Patient Anticipated discharge date: 2-[address]: Home Past Medical History Past Medical History: Cancer, Hypertension Additional Past Medical History / Comment(s): uterine CA-radiation May 2018,chemo 2017 History of Any Multi-Drug Resistant Organisms: None Reported Past Surgical History: Section, Hysterectomy Additional Past Surgical History / Comment(s): c sections x3,lump removed breast Past Anesthesia/Blood Transfusion Reactions: No Reported Reaction Additional Past Anesthesia/Blood Transfusion Reaction / Comment(s): no hx blood transfusion Past Psychological History: No Psychological Hx Reported Smoking Status: Never smoker Past Alcohol Use History: Rare Past Drug Use History: None Reported - Past Family History Mother Family Medical History: Deep Vein Thrombosis (DVT) Father Family Medical History: Cancer Medications and Allergies Home Medications Medication Instructions Recorded Confirmed Type Ascorbic Acid [Vitamin C] 1,000 mg PO DAILY 06/29/21 06/29/21 History Cholecalciferol [Vitamin D3 (25 25 mcg PO DAILY 06/29/21 06/29/21 History Mcg = 1000 Iu)] Elderberry Fruit and Flower [Black 1 cap PO DAILY 06/29/21 06/29/21 History Elderberry 575 mg Cap] Losartan Potassium 100 mg PO HS 06/29/21 06/29/21 History Zinc Gluconate [Zinc] 50 mg PO DAILY 06/29/21 06/29/21 History hydroCHLOROthiazide 25 mg PO DIRECTED 06/29/21 06/29/21 History Allergies Allergy/AdvReac Type Severity Reaction Status Date / Time amoxicillin [From Augmentin] AdvReac states Verified 06/29/21 17:41 "doesn't work for me" clavulanic acid AdvReac states Verified 06/29/21 17:41 [From Augmentin] "doesn't work for me" Physical Exam Vitals: Vital Signs Temp Pulse Resp BP Pulse Ox 06/29/21 19:00 93 16 144/75 94 L 06/29/21 18:10 92 L 06/29/21 18:00 80 L 06/29/21 17:00 84 16 139/75 93 L 06/29/21 16:05 95 20 121/86 92 L 06/29/21 15:37 98.8 F 100 22 107/67 89 L Intake and Output 06/29/21 06/29/21 06/29/21 06:59 14:59 22:59 Other: Weight 99.79 kg Results CBC & Chem 7: 06/29/21 15:58 06/29/21 15:58 Labs: Abnormal Lab Results - Last 24 Hours (Table) 06/29/21 06/29/21 06/29/21 Range/Units 15:58 15:58 15:58 WBC 15.3 H (3.8-10.6) k/uL Neutrophils # 13.1 H (1.3-7.7) k/uL APTT 21.8 L (22.0-30.0) sec D-Dimer 10.48 H (<0.60) mg/L FEU Sodium 134 L (137-145) mmol/L Potassium 5.3 H (3.5-5.1) mmol/L BUN 27 H (7-17) mg/dL Glucose 121 H (74-99) mg/dL Plasma Lactic Acid Cecilio (0.7-2.0) mmol/L Total Protein 6.2 L (6.3-8.2) g/dL Albumin 3.3 L (3.5-5.0) g/dL Coronavirus (PCR) (Not Detectd) 06/29/21 06/29/21 06/29/21 Range/Units 15:58 19:42 19:58 WBC (3.8-10.6) k/uL Neutrophils # (1.3-7.7) k/uL APTT (22.0-30.0) sec D-Dimer (<0.60) mg/L FEU Sodium (137-145) mmol/L Potassium (3.5-5.1) mmol/L BUN (7-17) mg/dL Glucose (74-99) mg/dL Plasma Lactic Acid Cecilio 2.5 H* 4.0 H* (0.7-2.0) mmol/L Total Protein (6.3-8.2) g/dL Albumin (3.5-5.0) g/dL Coronavirus (PCR) Detected A (Not Detectd)
[2021-06-30] MEDS: ZINC SULFATE 220 MG CAP PO SCH (09:01)
[2021-06-30] MEDS: ENOXAPARIN 40 MG/0.4 ML SYRINGE SQ SCH (09:01)
[2021-06-30] MEDS: CHOLECALCIFEROL 25 MCG (1000 IU) TABLET PO SCH (09:01)
[2021-06-30] MEDS: ASCORBIC ACID 500 MG TAB PO SCH (09:01)
[2021-06-30] MEDS: dexAMETHasone 2 MG TAB PO SCH (09:02)
[2021-06-30 09:05] LABS: HCT 39.5 % (37.2-46.3); HGB 12.3 g/dL (12.0-15.0); MCH 29.1 pg (27.0-32.0); MCHC 31.1 g/dL (32.0-37.0); MCV 93.4 fL (80.0-97.0); Mean Platelet Volume 8.9 fL (9.5-12.2); Platelet Count 128 X 10*3/uL (140-440); RBC 4.23 X 10*6/uL (4.10-5.20); RDW 13.4 % (11.5-14.5)
[2021-06-30 09:56] LABS: African American GFR (CKD) 106.1 (60.0-200.0); Anion Gap 13.7 mmol/L (10.00-18.00); BUN/Creat Ratio 23.43 Ratio (12.00-20.00); Blood Urea Nitrogen 16.4 mg/dL (9.0-27.0); Calcium 8.5 mg/dL (8.7-10.3); Carbon Dioxide 21.3 mmol/L (20.0-27.5); Non-African American GFR(CKD) 91.6 (60.0-200.0); Potassium 4.8 mmol/L (3.5-5.5)
--- NOTE | 2021-06-30 10:52 | P.PN ---
Subjective Progress Note Date: 06/30/21 Patient feels okay still short of breath weak Constitutional: No acute distress, conversant, pleasant Eyes: ENMT: Neck: Supple, Lungs: t, no accessory muscle use Cardiovascular: Abdominal: No apparent distention d Skin: Normal texture, turgor No induration Extremities: Moves all extremities Psychiatric:Alert and oriented to person, place and time Appropriate affect Intact judgement Neuro: Moves all extremities COVID-19 pneumonia with acute hypoxic respiratory failure -Continue Decadron -Supplemental oxygen -Zinc, vitamin C, vitamin D, melatonin -Pulmonary consult -Check pro calcitonin levels Prerenal azotemia -Continue with IV fluids Lactic acidosis -IV fluids and monitor for resolution Hyperkalemia -Suspected secondary to dehydration -Continue with IV hydration and monitor for now Overall stable continue patient on supplemental oxygen DVT prophylaxis -lovenox Objective - Vital Signs Vital signs: Vital Signs Temp 97.4 F L 06/30/21 09:39 Pulse 80 06/30/21 09:39 Resp 19 06/30/21 09:39 BP 155/75 06/30/21 09:39 Pulse Ox 90 L 06/30/21 09:39 Intake & Output 06/29/21 06/30/21 06/30/21 18:59 06:59 18:59 Weight 99.79 kg 99.79 kg Other: # Voids 2 1 - Labs CBC & Chem 7: 06/30/21 06:01 06/30/21 06:01 Labs: Abnormal Lab Results - Last 24 Hours (Table) 06/29/21 06/29/21 06/29/21 Range/Units 15:58 15:58 15:58 WBC 15.3 H (3.8-10.6) k/uL MCHC (32.0-37.0) g/dL Plt Count (140-440) X 10*3/uL MPV (9.5-12.2) fL Neutrophils # 13.1 H (1.3-7.7) k/uL APTT 21.8 L (22.0-30.0) sec D-Dimer 10.48 H (<0.60) mg/L FEU Sodium 134 L (137-145) mmol/L Potassium 5.3 H (3.5-5.1) mmol/L BUN 27 H (7-17) mg/dL BUN/Creatinine Ratio (12.00-20.00) Ratio Glucose 121 H (74-99) mg/dL Plasma Lactic Acid Cecilio (0.7-2.0) mmol/L Calcium (8.7-10.3) mg/dL Total Protein 6.2 L (6.3-8.2) g/dL Albumin 3.3 L (3.5-5.0) g/dL Coronavirus (PCR) (Not Detectd) 06/29/21 06/29/21 06/29/21 Range/Units 15:58 19:42 19:58 WBC (3.8-10.6) k/uL MCHC (32.0-37.0) g/dL Plt Count (140-440) X 10*3/uL MPV (9.5-12.2) fL Neutrophils # (1.3-7.7) k/uL APTT (22.0-30.0) sec D-Dimer (<0.60) mg/L FEU Sodium (137-145) mmol/L Potassium (3.5-5.1) mmol/L BUN (7-17) mg/dL BUN/Creatinine Ratio (12.00-20.00) Ratio Glucose (74-99) mg/dL Plasma Lactic Acid Cecilio 2.5 H* 4.0 H* (0.7-2.0) mmol/L Calcium (8.7-10.3) mg/dL Total Protein (6.3-8.2) g/dL Albumin (3.5-5.0) g/dL Coronavirus (PCR) Detected A (Not Detectd) 06/29/21 06/30/21 06/30/21 Range/Units 22:25 02:01 06:01 WBC 10.90 H (3.8-10.6) k/uL MCHC 31.1 L (32.0-37.0) g/dL Plt Count 128 L (140-440) X 10*3/uL MPV 8.9 L (9.5-12.2) fL Neutrophils # (1.3-7.7) k/uL APTT (22.0-30.0) sec D-Dimer (<0.60) mg/L FEU Sodium (137-145) mmol/L Potassium (3.5-5.1) mmol/L BUN (7-17) mg/dL BUN/Creatinine Ratio (12.00-20.00) Ratio Glucose (74-99) mg/dL Plasma Lactic Acid Cecilio 3.7 H* 3.2 H* (0.7-2.0) mmol/L Calcium (8.7-10.3) mg/dL Total Protein (6.3-8.2) g/dL Albumin (3.5-5.0) g/dL Coronavirus (PCR) (Not Detectd) 06/30/21 06/30/21 06/30/21 Range/Units 06:01 06:01 09:51 WBC (3.8-10.6) k/uL MCHC (32.0-37.0) g/dL Plt Count (140-440) X 10*3/uL MPV (9.5-12.2) fL Neutrophils # (1.3-7.7) k/uL APTT (22.0-30.0) sec D-Dimer (<0.60) mg/L FEU Sodium (137-145) mmol/L Potassium (3.5-5.1) mmol/L BUN (7-17) mg/dL BUN/Creatinine Ratio 23.43 H (12.00-20.00) Ratio Glucose 195 H (74-99) mg/dL Plasma Lactic Acid Cecilio 3.0 H* 3.8 H* (0.7-2.0) mmol/L Calcium 8.5 L (8.7-10.3) mg/dL Total Protein (6.3-8.2) g/dL Albumin (3.5-5.0) g/dL Coronavirus (PCR) (Not Detectd)
--- NOTE | 2021-06-30 14:35 | US ---
EXAMINATION TYPE: US venous doppler duplex LE DATE OF EXAM: 06/30/2021 12:19 PM COMPARISON: NONE CLINICAL HISTORY: r/o dvt elevated d dimer. Swelling. SIDE PERFORMED: Bilateral TECHNIQUE: The lower extremity deep venous system is examined utilizing real time linear array sonog cody with graded compression, doppler sonography and color-flow sonography. VESSELS IMAGED: Common Femoral Vein Deep Femoral Vein Greater Saphenous Vein * Femoral Vein Popliteal Vein Small Saphenous Vein * Proximal Calf Veins (* superficial vessels) Right Leg: Appears negative for DVT Left Leg: Appears negative for DVT Grayscale, color doppler, spectral doppler imaging performed of the deep veins of the bilateral lower extremities. There is normal flow, compressibility, vascular waveforms. IMPRESSION: No ultrasound evidence for acute DVT in either lower extremity.
--- NOTE | 2021-06-30 15:16 | P.CNPUL ---
History of Present Illness Consult date: 06/30/21 Requesting physician: Janet Alcaraz Reason for consult: dyspnea Chief complaint: Dyspnea, cough History of present illness: This is a 66-year-old female patient with past medical history of hypertension, lifetime nonsmoker, who presented to the emergency department on 06/29/2021 complaining of worsening shortness of breath. Patient was in the emergency department on 06/18/2021, was complaining of fever, body aches, shortness of breath, weakness and she was diagnosed with COVID-19 infection on June 14 2021. Chest x-ray at that time was showing mild heart failure versus interstitial pneumonia. Patient met the criteria for monoclonal antibodies, she received monoclonal antibodies on 06/18/2021. Patient symptoms have progressed, and upon presentation to the emergency department on 06/29/2021 she was noted to be hypoxic with a pulse ox in the 80s. She is still coughing, no phlegm production, no fever or chills, no chest pain or palpitations, no nausea vomiting or diarrhea. During her previous ER visit she was sent home with steroids which she has completed. Her EKG showed normal sinus rhythm without ST segment elevation or depression. Her admission blood work showed white blood cell count 15.3, hemoglobin was 13.8, d-dimer was significantly elevated at 10.48, but CT angiogram of the chest was negative for pulmonary embolism. Sodium is 134, potassium is 5.3, BUN was 27, creatinine 0.69, lactic acid was noted to be elevated at 2.5, troponin was negative at less than 0.012, LFTs were within normal limits. Patient was given IV hydration and she has received a total of 3 L of fluids, and currently her 0.9 normal saline is a 75 ML per hour, she was also started on Decadron 6 mg daily, prophylactic Lovenox and multivitamins. Lower extremity Dopplers for negative for DVT. Review of Systems All systems: negative Constitutional: Denies chills, Denies fever Eyes: denies blurred vision, denies pain Ears, nose, mouth and throat: Denies headache, Denies sore throat Cardiovascular: Denies chest pain, Denies shortness of breath Respiratory: Reports cough, Reports dyspnea Gastrointestinal: Denies abdominal pain, Denies diarrhea, Denies nausea, Denies vomiting Genitourinary: Denies dysuria, Denies hematuria Musculoskeletal: Denies myalgias Integumentary: Denies pruritus, Denies rash Neurological: Denies numbness, Denies weakness Psychiatric: Denies anxiety, Denies depression Endocrine: Denies fatigue, Denies weight change Past Medical History Past Medical History: Cancer, Hypertension Additional Past Medical History / Comment(s): uterine CA-radiation May 2018,chemo 2017 History of Any Multi-Drug Resistant Organisms: None Reported Past Surgical History: Section, Hysterectomy Additional Past Surgical History / Comment(s): c sections x3,lump removed breast Past Anesthesia/Blood Transfusion Reactions: No Reported Reaction Additional Past Anesthesia/Blood Transfusion Reaction / Comment(s): no hx blood transfusion Past Psychological History: No Psychological Hx Reported Smoking Status: Never smoker Past Alcohol Use History: Rare Past Drug Use History: None Reported - Past Family History Mother Family Medical History: Deep Vein Thrombosis (DVT) Father Family Medical History: Cancer Medications and Allergies Home Medications Medication Instructions Recorded Confirmed Type Ascorbic Acid [Vitamin C] 1,000 mg PO DAILY 06/29/21 06/29/21 History Cholecalciferol [Vitamin D3 (25 25 mcg PO DAILY 06/29/21 06/29/21 History Mcg = 1000 Iu)] Elderberry Fruit and Flower [Black 1 cap PO DAILY 06/29/21 06/29/21 History Elderberry 575 mg Cap] Losartan Potassium 100 mg PO HS 06/29/21 06/29/21 History Zinc Gluconate [Zinc] 50 mg PO DAILY 06/29/21 06/29/21 History hydroCHLOROthiazide 25 mg PO DIRECTED 06/29/21 06/29/21 History Allergies Allergy/AdvReac Type Severity Reaction Status Date / Time amoxicillin [From Augmentin] AdvReac states Verified 06/29/21 17:41 "doesn't work for me" clavulanic acid AdvReac states Verified 06/29/21 17:41 [From Augmentin] "doesn't work for me" Physical Exam Vitals: Vital Signs Temp Pulse Pulse Resp BP BP Pulse Ox 06/30/21 13:10 97.7 F 79 17 152/77 92 L 06/30/21 09:39 97.4 F L 80 19 155/75 90 L 06/30/21 06:00 97.6 F 71 20 161/93 94 L 06/30/21 02:00 97.7 F 71 19 144/82 95 06/29/21 21:25 97.8 F 80 20 138/78 93 L 06/29/21 19:00 93 16 144/75 94 L 06/29/21 18:10 92 L 06/29/21 18:00 80 L 06/29/21 17:00 84 16 139/75 93 L 06/29/21 16:05 95 20 121/86 92 L 06/29/21 15:37 98.8 F 100 22 107/67 89 L Intake and Output 06/30/21 06/30/21 06/30/21 06:59 14:59 22:59 Other: # Voids 2 1 GENERAL EXAM: Alert, very pleasant, 66-year-old white female, on 4 L of oxygen with a pulse ox of 92%, comfortable in no apparent distress. HEAD: Normocephalic/atraumatic. EYES: Normal reaction of pupils, equal size. Conjunctiva pink, sclera white. NOSE: Clear with pink turbinates. THROAT: No erythema or exudates. NECK: No masses, no JVD, no thyroid enlargement, no adenopathy. CHEST: No chest wall deformity. Symmetrical expansion. LUNGS: Equal air entry with mild crackles CVS: Regular rate and rhythm, normal S1 and S2, no gallops, no murmurs, no rubs ABDOMEN: Soft, nontender. No hepatosplenomegaly, normal bowel sounds, no guarding or rigidity. EXTREMITIES: No clubbing, no edema, no cyanosis, 2+ pulses and upper and lower extremities. MUSCULOSKELETAL: Muscle strength and tone normal. SPINE: No scoliosis or deformity SKIN: No rashes CENTRAL NERVOUS SYSTEM: Alert and oriented -3. No focal deficits, tone is normal in all 4 extremities. PSYCHIATRIC: Alert and oriented -3. Appropriate affect. Intact judgment and insight. Results - Laboratory Findings CBC and BMP: 06/30/21 06:01 06/30/21 06:01 PT/INR, D-dimer PT 10.0 sec (9.0-12.0) 06/29/21 15:58 INR 0.9 (<1.2) 06/29/21 15:58 D-Dimer 10.48 mg/L FEU (<0.60) H 06/29/21 15:58 Abnormal lab findings: Abnormal Labs 06/29/21 06/29/2121 15:58 15:58 15:58 WBC 15.3 H MCHC Plt Count MPV Neutrophils # 13.1 H APTT 21.8 L D-Dimer 10.48 H Sodium 134 L Potassium 5.3 H BUN 27 H BUN/Creatinine Ratio Glucose 121 H Plasma Lactic Acid Cecilio Calcium Total Protein 6.2 L Albumin 3.3 L Coronavirus (PCR) 06/29/21 06/29/21 06/29/21 15:58 19:42 19:58 WBC MCHC Plt Count MPV Neutrophils # APTT D-Dimer Sodium Potassium BUN BUN/Creatinine Ratio Glucose Plasma Lactic Acid Cecilio 2.5 H* 4.0 H* Calcium Total Protein Albumin Coronavirus (PCR) Detected A 06/29/21 06/30/21 06/30/21 22:25 02:01 06:01 WBC 10.90 H MCHC 31.1 L Plt Count 128 L MPV 8.9 L Neutrophils # APTT D-Dimer Sodium Potassium BUN BUN/Creatinine Ratio Glucose Plasma Lactic Acid Cecilio 3.7 H* 3.2 H* Calcium Total Protein Albumin Coronavirus (PCR) 06/30/21 06/30/21 06/30/21 06:01 06:01 09:51 WBC MCHC Plt Count MPV Neutrophils # APTT D-Dimer Sodium Potassium BUN BUN/Creatinine Ratio 23.43 H Glucose 195 H Plasma Lactic Acid Cecilio 3.0 H* 3.8 H* Calcium 8.5 L Total Protein Albumin Coronavirus (PCR) 06/30/21 12:42 WBC MCHC Plt Count MPV Neutrophils # APTT D-Dimer Sodium Potassium BUN BUN/Creatinine Ratio Glucose Plasma Lactic Acid Cecilio 4.1 H* Calcium Total Protein Albumin Coronavirus (PCR) - Diagnostic Findings CT scan - chest: report reviewed, image reviewed Additional studies: Lower extremity Dopplers were reviewed and were negative for DVT, EKG has been reviewed Assessment and Plan Plan: Assessment: #1. Acute hypoxic respiratory failure due to acute COVID-19 pneumonia, patient was diagnosed on 06/14/2021. She did receive monoclonal antibodies on 06/18/2021. Non-vaccinated against COVID-19. Is outside the window for Remdesivir #2. Elevated D-dimer of 10.4 age, and CTA chest and lower extremity Doppler were negative for PE and DVT #3. Lactic acidosis, has actually increased after fluid resuscitation, pro- calcitonin level is negative at 0.05, doubt possibility of sepsis #4. Mild hyponatremia, improved with IV hydration #5. History of hypertension #6. Lifetime nonsmoker Plan: Patient is outside the window for Remdesivir We'll continue with Decadron, prophylactic Lovenox and multivitamins No evidence of DVT and no evidence of PE Currently patient is breathing comfortably, she has a cough, but no acute distress, she is on 2 L of oxygen Continue to monitor for worsening dyspnea and hypoxia Continue to follow her clinical course and make recommendations accordingly I performed a history & physical examination of the patient and discussed their management with my nurse practitioner, Yesi Rose. I reviewed the nurse practitioner's note and agree with the documented findings and plan of care. Lung sounds are positive for diminished breath sounds throughout the lung montemayor. The findings and the impression was discussed with the patient. I attest to the documentation by the nurse practitioner. Time with Patient: Greater than 30
[2021-07-01] MEDS: CHOLECALCIFEROL 25 MCG (1000 IU) TABLET PO SCH (09:42)
[2021-07-01] MEDS: ASCORBIC ACID 500 MG TAB PO SCH (09:42)
[2021-07-01] MEDS: dexAMETHasone 2 MG TAB PO SCH (09:42)
[2021-07-01] MEDS: ZINC SULFATE 220 MG CAP PO SCH (09:42)
[2021-07-01] MEDS: ENOXAPARIN 40 MG/0.4 ML SYRINGE SQ SCH (09:42)
[2021-07-01 10:54] LABS: Basophils # (A) 0.03 X 10*3/uL (0.00-0.10); Basophils % (A) 0.2 %; Eosinophils # (A) 0.02 X 10*3/uL (0.04-0.35); Eosinophils % (A) 0.1 %; HCT 38.3 % (37.2-46.3); HGB 11.8 g/dL (12.0-15.0); Lymphocytes # (A) 1.15 X 10*3/uL (0.90-5.00); Lymphocytes % (A) 7.5 %; MCH 29.3 pg (27.0-32.0); MCHC 30.8 g/dL (32.0-37.0); Mean Platelet Volume 9.2 fL (9.5-12.2); Monocytes # (A) 0.63 X 10*3/uL (0.20-1.00); Monocytes % (A) 4.1 %; Neutrophils # (A) 13.26 X 10*3/uL (1.80-7.70); Neutrophils % (A) 86.3 %; Platelet Count 141 X 10*3/uL (140-440); RBC 4.03 X 10*6/uL (4.10-5.20); RDW 13.3 % (11.5-14.5); WBC 15.37 X 10*3/uL (4.50-10.00)
--- NOTE | 2021-07-01 11:01 | P.PN ---
Subjective Progress Note Date: 07/01/21 Principal diagnosis: Patient feels better today shortness of breath improved no vomiting no chest pain Constitutional: No acute distress, conversant, pleasant Eyes: ENMT: Neck: Supple, Lungs: t, no accessory muscle use Cardiovascular: Abdominal: No apparent distention d Skin: Normal texture, Extremities: Moves all extremities Psychiatric:Alert and oriented to person, place and time Appropriate affect Intact judgement Neuro: Moves all extremities COVID-19 pneumonia with acute hypoxic respiratory failure -Continue Decadron -Supplemental oxygen -Zinc, vitamin C, vitamin D, melatonin -Pulmonary consult -Check pro calcitonin levels Prerenal azotemia -Continue with IV fluids Lactic acidosis -IV fluids and monitor for resolution Hyperkalemia -Suspected secondary to dehydration -Continue with IV hydration and monitor for now Overall stable continue patient on supplemental oxygen Overall continues to improve we'll continue to wean oxygen as tolerated DVT prophylaxis Objective - Vital Signs Vital signs: Vital Signs Temp 98.0 F 07/01/21 09:38 Pulse 70 07/01/21 09:38 Resp 18 07/01/21 09:38 BP 127/77 07/01/21 09:38 Pulse Ox 94 L 07/01/21 09:38 Intake & Output 06/30/21 07/01/21 07/01/21 18:59 06:59 18:59 Other: # Voids 1 2 # Bowel Movements 1 - Labs CBC & Chem 7: 07/01/21 07:03 06/30/21 06:01 Labs: Abnormal Lab Results - Last 24 Hours (Table) 06/30/21 06/30/21 06/30/21 Range/Units 12:42 16:49 20:25 WBC (4.50-10.00) X 10*3/uL RBC (4.10-5.20) X 10*6/uL Hgb (12.0-15.0) g/dL MCHC (32.0-37.0) g/dL MPV (9.5-12.2) fL Immature Gran # (0.00-0.04) X 10*3/uL Neutrophils # (1.80-7.70) X 10*3/uL Eosinophils # (0.04-0.35) X 10*3/uL Plasma Lactic Acid Cecilio 4.1 H* 2.3 H* 3.3 H* (0.7-2.0) mmol/L 07/01/21 07/01/21 Range/Units 07:03 07:03 WBC 15.37 H (4.50-10.00) X 10*3/uL RBC 4.03 L (4.10-5.20) X 10*6/uL Hgb 11.8 L (12.0-15.0) g/dL MCHC 30.8 L (32.0-37.0) g/dL MPV 9.2 L (9.5-12.2) fL Immature Gran # 0.28 H (0.00-0.04) X 10*3/uL Neutrophils # 13.26 H (1.80-7.70) X 10*3/uL Eosinophils # 0.02 L (0.04-0.35) X 10*3/uL Plasma Lactic Acid Cecilio 2.1 H* (0.7-2.0) mmol/L
[2021-07-01 11:30] LABS: African American GFR (CKD) 107.1 (60.0-200.0); Albumin 3.1 g/dL (3.8-4.9); Albumin/Globulin Ratio 1.59 (1.60-3.17); Anion Gap 9.9 mmol/L (10.00-18.00); BUN/Creat Ratio 26.73 Ratio (12.00-20.00); Blood Urea Nitrogen 18.2 mg/dL (9.0-27.0); Calcium 8.8 mg/dL (8.7-10.3); Carbon Dioxide 25.1 mmol/L (20.0-27.5); Non-African American GFR(CKD) 92.4 (60.0-200.0); Potassium 4.5 mmol/L (3.5-5.5); Total Bilirubin 0.3 mg/dL (0.30-1.20); Total Protein 5.1 g/dL (6.2-8.2)
--- NOTE | 2021-07-01 15:38 | P.PN ---
Subjective Progress Note Date: 07/01/21 This is a 66-year-old female patient with past medical history of hypertension, lifetime nonsmoker, who presented to the emergency department on 06/29/2021 complaining of worsening shortness of breath. Patient was in the emergency department on 06/18/2021, was complaining of fever, body aches, shortness of breath, weakness and she was diagnosed with COVID-19 infection on June 14 2021. Chest x-ray at that time was showing mild heart failure versus interstitial pneumonia. Patient met the criteria for monoclonal antibodies, she received monoclonal antibodies on 06/18/2021. Patient symptoms have progressed, and upon presentation to the emergency department on 06/29/2021 she was noted to be hypoxic with a pulse ox in the 80s. She is still coughing, no phlegm production, no fever or chills, no chest pain or palpitations, no nausea vomiting or diarrhea. During her previous ER visit she was sent home with steroids which she has completed. Her EKG showed normal sinus rhythm without ST segment elevation or depression. Her admission blood work showed white blood cell count 15.3, hemoglobin was 13.8, d-dimer was significantly elevated at 10.48, but CT angiogram of the chest was negative for pulmonary embolism. Sodium is 134, potassium is 5.3, BUN was 27, creatinine 0.69, lactic acid was noted to be elevated at 2.5, troponin was negative at less than 0.012, LFTs were within normal limits. Patient was given IV hydration and she has received a total of 3 L of fluids, and currently her 0.9 normal saline is a 75 ML per hour, she was also started on Decadron 6 mg daily, prophylactic Lovenox and multivitamins. Lower extremity Dopplers for negative for DVT. On 07/01/2021 patient seen in follow-up on medical surgical floor, she is breathing fairly comfortably, but her oxygen demand has slightly increased and she is currently at 4 L of oxygen and her saturation is 93-94%, she is afebrile, hemodynamically she stable, occasional mild cough. No chest discomfort, she is tolerating oral intake, no acute events overnight, patient has not been able to lay on her stomach, she has been trying to lay on her sides. Patient continues on Decadron 6 mg daily, prophylactic Lovenox, she is on multivitamins. Today's labs have been noted, her white count is 15.3, hemoglobin is 11.8, electrolytes and renal profile are unremarkable, her lactic acid is 2.1, pro calcitonin level was negative, Objective - Vital Signs Vital signs: Vital Signs Temp 97.9 F 07/01/21 14:00 Pulse 79 07/01/21 14:00 Resp 22 07/01/21 14:00 BP 121/73 07/01/21 14:00 Pulse Ox 93 L 07/01/21 14:00 Intake & Output 06/30/21 07/01/21 07/01/21 18:59 06:59 18:59 Other: # Voids 1 2 # Bowel Movements 1 - Exam GENERAL EXAM: Alert, very pleasant, 66-year-old white female, on 4 L of oxygen with a pulse ox of 92%, comfortable in no apparent distress. HEAD: Normocephalic/atraumatic. EYES: Normal reaction of pupils, equal size. Conjunctiva pink, sclera white. NOSE: Clear with pink turbinates. THROAT: No erythema or exudates. NECK: No masses, no JVD, no thyroid enlargement, no adenopathy. CHEST: No chest wall deformity. Symmetrical expansion. LUNGS: Equal air entry with mild crackles CVS: Regular rate and rhythm, normal S1 and S2, no gallops, no murmurs, no rubs ABDOMEN: Soft, nontender. No hepatosplenomegaly, normal bowel sounds, no guarding or rigidity. EXTREMITIES: No clubbing, no edema, no cyanosis, 2+ pulses and upper and lower extremities. MUSCULOSKELETAL: Muscle strength and tone normal. SPINE: No scoliosis or deformity SKIN: No rashes CENTRAL NERVOUS SYSTEM: Alert and oriented -3. No focal deficits, tone is normal in all 4 extremities. PSYCHIATRIC: Alert and oriented -3. Appropriate affect. Intact judgment and insight. - Labs CBC & Chem 7: 07/01/21 07:03 07/01/21 07:03 Labs: Abnormal Lab Results - Last 24 Hours (Table) 06/30/21 06/30/21 07/01/21 Range/Units 16:49 20:25 07:03 WBC 15.37 H (4.50-10.00) X 10*3/uL RBC 4.03 L (4.10-5.20) X 10*6/uL Hgb 11.8 L (12.0-15.0) g/dL MCHC 30.8 L (32.0-37.0) g/dL MPV 9.2 L (9.5-12.2) fL Immature Gran # 0.28 H (0.00-0.04) X 10*3/uL Neutrophils # 13.26 H (1.80-7.70) X 10*3/uL Eosinophils # 0.02 L (0.04-0.35) X 10*3/uL Anion Gap (10.00-18.00) mmol/L BUN/Creatinine Ratio (12.00-20.00) Ratio Glucose (70-110) mg/dL Plasma Lactic Acid Cecilio 2.3 H* 3.3 H* (0.7-2.0) mmol/L AST (13-35) U/L Total Protein (6.2-8.2) g/dL Albumin (3.8-4.9) g/dL Albumin/Globulin Ratio (1.60-3.17) g/dL 07/01/21 07/01/21 Range/Units 07:03 07:03 WBC (4.50-10.00) X 10*3/uL RBC (4.10-5.20) X 10*6/uL Hgb (12.0-15.0) g/dL MCHC (32.0-37.0) g/dL MPV (9.5-12.2) fL Immature Gran # (0.00-0.04) X 10*3/uL Neutrophils # (1.80-7.70) X 10*3/uL Eosinophils # (0.04-0.35) X 10*3/uL Anion Gap 9.90 L (10.00-18.00) mmol/L BUN/Creatinine Ratio 26.73 H (12.00-20.00) Ratio Glucose 146 H (70-110) mg/dL Plasma Lactic Acid Cecilio 2.1 H* (0.7-2.0) mmol/L AST 11 L (13-35) U/L Total Protein 5.1 L (6.2-8.2) g/dL Albumin 3.1 L (3.8-4.9) g/dL Albumin/Globulin Ratio 1.59 L (1.60-3.17) g/dL Assessment and Plan Plan: Assessment: #1. Acute hypoxic respiratory failure due to acute COVID-19 pneumonia, patient was diagnosed on 06/14/2021. She did receive monoclonal antibodies on 06/18/2021. Non-vaccinated against COVID-19. Is outside the window for Remdesivir #2. Elevated D-dimer of 10.4 age, and CTA chest and lower extremity Doppler were negative for PE and DVT #3. Lactic acidosis, has actually increased after fluid resuscitation, pro- calcitonin level is negative at 0.05, doubt possibility of sepsis #4. Mild hyponatremia, improved with IV hydration #5. History of hypertension #6. Lifetime nonsmoker Plan: Continue current medical treatment Fairly stable, currently on 4 L of oxygen, a bit more than she was requiring yesterday We'll continue with Decadron, prophylactic Lovenox and multivitamins Increase activity as tolerated Continue to follow her clinical course and make recommendations accordingly I performed a history & physical examination of the patient and discussed their management with my nurse practitioner, Yesi Rose. I reviewed the nurse practitioner's note and agree with the documented findings and plan of care. Lung sounds are positive for diminished breath sounds throughout the lung montemayor. The findings and the impression was discussed with the patient. I attest to the documentation by the nurse practitioner. Time with Patient: Less than 30
[2021-07-02] MEDS: CHOLECALCIFEROL 25 MCG (1000 IU) TABLET PO SCH (07:58)
[2021-07-02] MEDS: ZINC SULFATE 220 MG CAP PO SCH (07:58)
[2021-07-02] MEDS: ENOXAPARIN 40 MG/0.4 ML SYRINGE SQ SCH (07:59)
[2021-07-02] MEDS: ASCORBIC ACID 500 MG TAB PO SCH (07:59)
[2021-07-02] MEDS: dexAMETHasone 2 MG TAB PO SCH (07:59)
--- NOTE | 2021-07-02 09:02 | P.PN ---
Subjective Progress Note Date: 07/02/21 Patient still have some shortness of breath but overall stable No chest pain no vomiting Constitutional: No acute distress, conversant, pleasant Eyes: ENMT: Neck: Supple, Lungs: t, no accessory muscle use Cardiovascular: Abdominal: No apparent distention d Skin: Normal texture, Extremities: Moves all extremities Psychiatric:Alert and oriented to person, place and time Appropriate affect Intact judgement Neuro: Moves all extremities COVID-19 pneumonia with acute hypoxic respiratory failure -Continue Decadron -Supplemental oxygen -Zinc, vitamin C, vitamin D, melatonin -Pulmonary consult -Check pro calcitonin levels Prerenal azotemia -Continue with IV fluids Lactic acidosis -IV fluids and monitor for resolution Hyperkalemia -Suspected secondary to dehydration -Continue with IV hydration and monitor for now Overall stable continue patient on supplemental oxygen Overall stable hopefully discharge in a day or 2 if continues to improve Overall continues to improve we'll continue to wean oxygen as tolerated DVT prophylaxis Objective - Vital Signs Vital signs: Vital Signs Temp 97.6 F 07/02/21 05:42 Pulse 72 07/02/21 05:42 Resp 20 07/02/21 05:42 BP 173/82 07/02/21 05:42 Pulse Ox 93 L 07/02/21 05:42 Intake & Output 07/01/21 07/02/21 07/02/21 18:59 06:59 18:59 Other: Voiding Method Toilet # Voids 3 - Labs CBC & Chem 7: 07/01/21 07:03 07/01/21 07:03 Labs: Abnormal Lab Results - Last 24 Hours (Table) 07/01/21 07/01/21 07/02/21 Range/Units 07:03 07:03 06:32 WBC 15.37 H (4.50-10.00) X 10*3/uL RBC 4.03 L (4.10-5.20) X 10*6/uL Hgb 11.8 L (12.0-15.0) g/dL MCHC 30.8 L (32.0-37.0) g/dL MPV 9.2 L (9.5-12.2) fL Immature Gran # 0.28 H (0.00-0.04) X 10*3/uL Neutrophils # 13.26 H (1.80-7.70) X 10*3/uL Eosinophils # 0.02 L (0.04-0.35) X 10*3/uL Anion Gap 9.90 L (10.00-18.00) mmol/L BUN/Creatinine Ratio 26.73 H (12.00-20.00) Ratio Glucose 146 H (70-110) mg/dL Plasma Lactic Acid Cecilio 2.2 H* (0.7-2.0) mmol/L AST 11 L (13-35) U/L Total Protein 5.1 L (6.2-8.2) g/dL Albumin 3.1 L (3.8-4.9) g/dL Albumin/Globulin Ratio 1.59 L (1.60-3.17) g/dL
[2021-07-02 09:17] LABS: Basophils # (A) 0.04 X 10*3/uL (0.00-0.10); Basophils % (A) 0.3 %; Eosinophils # (A) 0.01 X 10*3/uL (0.04-0.35); Eosinophils % (A) 0.1 %; HCT 38.3 % (37.2-46.3); Lymphocytes # (A) 0.83 X 10*3/uL (0.90-5.00); Lymphocytes % (A) 7.2 %; MCH 29.2 pg (27.0-32.0); MCHC 31.3 g/dL (32.0-37.0); MCV 93.2 fL (80.0-97.0); Monocytes # (A) 0.56 X 10*3/uL (0.20-1.00); Monocytes % (A) 4.9 %; Neutrophils # (A) 9.89 X 10*3/uL (1.80-7.70); Neutrophils % (A) 85.9 %; Platelet Count 147 X 10*3/uL (140-440); RBC 4.11 X 10*6/uL (4.10-5.20); RDW 13.5 % (11.5-14.5); WBC 11.51 X 10*3/uL (4.50-10.00)
[2021-07-02 11:49] LABS: African American GFR (CKD) 108.9 (60.0-200.0); Albumin 3.3 g/dL (3.8-4.9); Albumin/Globulin Ratio 1.61 (1.60-3.17); Anion Gap 10.7 mmol/L (10.00-18.00); BUN/Creat Ratio 28.59 Ratio (12.00-20.00); Blood Urea Nitrogen 18.5 mg/dL (9.0-27.0); Calcium 8.9 mg/dL (8.7-10.3); Carbon Dioxide 25.5 mmol/L (20.0-27.5); Globulin 2.1 g/dL (1.6-3.3); Potassium 4.4 mmol/L (3.5-5.5); Total Bilirubin 0.4 mg/dL (0.30-1.20); Total Protein 5.4 g/dL (6.2-8.2)
--- NOTE | 2021-07-02 15:21 | P.PN ---
Subjective Progress Note Date: 07/02/21 Principal diagnosis: CoVID pneumonia This is a 66-year-old female patient with past medical history of hypertension, lifetime nonsmoker, who presented to the emergency department on 06/29/2021 complaining of worsening shortness of breath. Patient was in the emergency department on 06/18/2021, was complaining of fever, body aches, shortness of breath, weakness and she was diagnosed with COVID-19 infection on June 14 2021. Chest x-ray at that time was showing mild heart failure versus interstitial pneumonia. Patient met the criteria for monoclonal antibodies, she received monoclonal antibodies on 06/18/2021. Patient symptoms have progressed, and upon presentation to the emergency department on 06/29/2021 she was noted to be hypoxic with a pulse ox in the 80s. She is still coughing, no phlegm production, no fever or chills, no chest pain or palpitations, no nausea vomiting or diarrhea. During her previous ER visit she was sent home with steroids which she has completed. Her EKG showed normal sinus rhythm without ST segment elevation or depression. Her admission blood work showed white blood cell count 15.3, hemoglobin was 13.8, d-dimer was significantly elevated at 10.48, but CT angiogram of the chest was negative for pulmonary embolism. Sodium is 134, potassium is 5.3, BUN was 27, creatinine 0.69, lactic acid was noted to be elevated at 2.5, troponin was negative at less than 0.012, LFTs were within normal limits. Patient was given IV hydration and she has received a total of 3 L of fluids, and currently her 0.9 normal saline is a 75 ML per hour, she was also started on Decadron 6 mg daily, prophylactic Lovenox and multivitamins. Lower extremity Dopplers for negative for DVT. On 07/01/2021 patient seen in follow-up on medical surgical floor, she is breathing fairly comfortably, but her oxygen demand has slightly increased and she is currently at 4 L of oxygen and her saturation is 93-94%, she is afebrile, hemodynamically she stable, occasional mild cough. No chest discomfort, she is tolerating oral intake, no acute events overnight, patient has not been able to lay on her stomach, she has been trying to lay on her sides. Patient continues on Decadron 6 mg daily, prophylactic Lovenox, she is on multivitamins. Today's labs have been noted, her white count is 15.3, hemoglobin is 11.8, electrolytes and renal profile are unremarkable, her lactic acid is 2.1, pro calcitonin level was negative, Patient is seen today 07/02/2021 in follow-up on the regular medical floor. She is currently sitting up at the bedside. Awake and alert in no acute distress. Maintaining O2 saturations in the 90s on 4 L/m per nasal cannula. She's normal saline at 75 ML's per hour. She is feeling a bit better. She still has some dyspnea on exertion. Dry nonproductive cough, headache. She did receive monoclonal antibodies on 06/18/2021. She remains on Decadron, Lovenox, vitamin supplements. White count 11.5. Hemoglobin 12.0. Leukocytes 0.8. Sodium 138. Potassium 4.4. Creatinine 0.6. Glucose 125. Objective - Vital Signs Vital signs: Vital Signs Temp 97.8 F 07/02/21 14:00 Pulse 66 07/02/21 14:00 Resp 20 07/02/21 14:00 BP 151/79 07/02/21 14:00 Pulse Ox 94 L 07/02/21 14:00 Intake & Output 07/01/21 07/02/21 07/02/21 18:59 06:59 18:59 Intake Total 240 Balance 240 Intake: Oral 240 Other: Voiding Method Toilet Toilet # Voids 3 - Exam GENERAL EXAM: Alert, very pleasant, 66-year-old female patient, on 4 L of oxygen, comfortable in no apparent distress. HEAD: Normocephalic/atraumatic. EYES: Normal reaction of pupils, equal size. Conjunctiva pink, sclera white. NOSE: Clear with pink turbinates. THROAT: No erythema or exudates. NECK: No masses, no JVD, no thyroid enlargement, no adenopathy. CHEST: No chest wall deformity. Symmetrical expansion. LUNGS: Equal air entry with mild crackles CVS: Regular rate and rhythm, normal S1 and S2, no gallops, no murmurs, no rubs ABDOMEN: Soft, nontender. No hepatosplenomegaly, normal bowel sounds, no guarding or rigidity. EXTREMITIES: No clubbing, no edema, no cyanosis, 2+ pulses and upper and lower extremities. MUSCULOSKELETAL: Muscle strength and tone normal. SPINE: No scoliosis or deformity SKIN: No rashes CENTRAL NERVOUS SYSTEM:No focal deficits, tone is normal in all 4 extremities. PSYCHIATRIC: Alert and oriented -3. Appropriate affect. Intact judgment and insight. - Labs CBC & Chem 7: 07/02/21 06:32 07/02/21 06:32 Labs: Abnormal Lab Results - Last 24 Hours (Table) 07/02/21 07/02/21 07/02/21 Range/Units 06:32 06:32 06:32 WBC 11.51 H (4.50-10.00) X 10*3/uL MCHC 31.3 L (32.0-37.0) g/dL MPV 9.0 L (9.5-12.2) fL Immature Gran # 0.18 H (0.00-0.04) X 10*3/uL Neutrophils # 9.89 H (1.80-7.70) X 10*3/uL Lymphocytes # 0.83 L (0.90-5.00) X 10*3/uL Eosinophils # 0.01 L (0.04-0.35) X 10*3/uL BUN/Creatinine Ratio 28.59 H (12.00-20.00) Ratio Glucose 125 H (70-110) mg/dL Plasma Lactic Acid Cecilio 2.2 H* (0.7-2.0) mmol/L Total Protein 5.4 L (6.2-8.2) g/dL Albumin 3.3 L (3.8-4.9) g/dL 07/02/21 07/02/21 Range/Units 10:06 13:03 WBC (4.50-10.00) X 10*3/uL MCHC (32.0-37.0) g/dL MPV (9.5-12.2) fL Immature Gran # (0.00-0.04) X 10*3/uL Neutrophils # (1.80-7.70) X 10*3/uL Lymphocytes # (0.90-5.00) X 10*3/uL Eosinophils # (0.04-0.35) X 10*3/uL BUN/Creatinine Ratio (12.00-20.00) Ratio Glucose (70-110) mg/dL Plasma Lactic Acid Cecilio 2.4 H* 3.3 H* (0.7-2.0) mmol/L Total Protein (6.2-8.2) g/dL Albumin (3.8-4.9) g/dL Assessment and Plan Assessment: 1 Acute hypoxic respiratory failure due to acute COVID-19 pneumonia, patient was diagnosed on 06/14/2021. She did receive monoclonal antibodies on 06/18/2021. Non-vaccinated against COVID-19. Is outside the window for Remdesivir 2 Elevated D-dimer of 10.4 age, and CTA chest and lower extremity Doppler were negative for PE and DVT 3 Lactic acidosis, has actually increased after fluid resuscitation, pro- calcitonin level is negative at 0.05, doubt possibility of sepsis 4 Mild hyponatremia, improved with IV hydration 5 History of hypertension 6 Lifetime nonsmoker Plan: The patient was evaluated Currently stable from the pulmonary standpoint On 4 L nasal cannula Titrate the FiO2 as tolerated Continue Decadron, Lovenox, vitamin supplement Possibly home in the next 24-48 hours I, the cosigning physician, performed a history & physical examination of the patient. Lungs sounds with mild crackles in the posterior bases. Maintaining good O2 saturations in the 90s on 4 L/m per nasal cannula. I discussed the assessment and plan of care with my nurse practitioner, Sade Givens. I attest to the above note as dictated by her.
[2021-07-02] MEDS ORDERED: ACETAMINOPHEN TAB 325 MG TAB PO PRN (17:10)
[2021-07-02] MEDS: LOSARTAN 50 MG TAB PO SCH (17:19)
[2021-07-03] MEDS: CHOLECALCIFEROL 25 MCG (1000 IU) TABLET PO SCH (07:49)
[2021-07-03] MEDS: ZINC SULFATE 220 MG CAP PO SCH (07:49)
[2021-07-03] MEDS: dexAMETHasone 2 MG TAB PO SCH (07:49)
[2021-07-03] MEDS: ASCORBIC ACID 500 MG TAB PO SCH (07:49)
[2021-07-03] MEDS: ENOXAPARIN 40 MG/0.4 ML SYRINGE SQ SCH (07:50)
--- NOTE | 2021-07-03 10:13 | P.PN ---
Subjective Progress Note Date: 07/03/21 Patient still on 4 L oxygen still short of breath but improving No chest pain no vomiting Constitutional: No acute distress, conversant, pleasant Eyes: ENMT: Neck: Supple, Lungs: t, no accessory muscle use Cardiovascular: Abdominal: No apparent distention d Skin: Normal texture, Extremities: Moves all extremities Psychiatric:Alert and oriented to person, place and time Appropriate affect Intact judgement Neuro: Moves all extremities COVID-19 pneumonia with acute hypoxic respiratory failure -Continue Decadron -Supplemental oxygen -Zinc, vitamin C, vitamin D, melatonin -Pulmonary consult -Check pro calcitonin levels Prerenal azotemia -Continue with IV fluids Lactic acidosis -IV fluids and monitor for resolution Hyperkalemia -Suspected secondary to dehydration -Continue with IV hydration and monitor for now Overall stable continue patient on supplemental oxygen Overall stable hopefully discharge in a day or 2 if continues to improve Overall continues to improve we'll continue to wean oxygen as tolerated DVT prophylaxis Patient still on 4 L oxygen will continue to wean down oxygen as tolerated continue to monitor Objective - Vital Signs Vital signs: Vital Signs Temp 97.8 F 07/03/21 06:00 Pulse 57 L 07/03/21 06:00 Resp 17 07/03/21 06:00 BP 167/83 07/03/21 06:00 Pulse Ox 96 07/03/21 06:00 Intake & Output 07/02/21 07/03/21 07/03/21 18:59 06:59 18:59 Intake Total 240 200 Balance 240 200 Intake: Oral 240 200 Other: Voiding Method Toilet Toilet # Voids 4 3 - Labs CBC & Chem 7: 07/02/21 06:32 07/02/21 06:32 Labs: Abnormal Lab Results - Last 24 Hours (Table) 07/02/21 07/02/21 07/02/21 Range/Units 06:32 10:06 13:03 BUN/Creatinine Ratio 28.59 H (12.00-20.00) Ratio Glucose 125 H (70-110) mg/dL Plasma Lactic Acid Cecilio 2.4 H* 3.3 H* (0.7-2.0) mmol/L Total Protein 5.4 L (6.2-8.2) g/dL Albumin 3.3 L (3.8-4.9) g/dL 07/02/21 07/02/21 Range/Units 18:37 21:52 BUN/Creatinine Ratio (12.00-20.00) Ratio Glucose (70-110) mg/dL Plasma Lactic Acid Cecilio 3.9 H* 2.2 H* (0.7-2.0) mmol/L Total Protein (6.2-8.2) g/dL Albumin (3.8-4.9) g/dL
[2021-07-03 12:28] LABS: Basophils # (A) 0.03 X 10*3/uL (0.00-0.10); Basophils % (A) 0.3 %; Eosinophils # (A) 0.02 X 10*3/uL (0.04-0.35); Eosinophils % (A) 0.2 %; HCT 40.9 % (37.2-46.3); HGB 12.2 g/dL (12.0-15.0); Lymphocytes # (A) 1.13 X 10*3/uL (0.90-5.00); Lymphocytes % (A) 11.2 %; MCH 28.9 pg (27.0-32.0); MCHC 29.8 g/dL (32.0-37.0); MCV 96.9 fL (80.0-97.0); Mean Platelet Volume 9.5 fL (9.5-12.2); Monocytes # (A) 0.63 X 10*3/uL (0.20-1.00); Monocytes % (A) 6.3 %; Neutrophils # (A) 8.06 X 10*3/uL (1.80-7.70); Neutrophils % (A) 80.2 %; Platelet Count 157 X 10*3/uL (140-440); RBC 4.22 X 10*6/uL (4.10-5.20); RDW 13.5 % (11.5-14.5); WBC 10.05 X 10*3/uL (4.50-10.00)
[2021-07-03 13:24] LABS: African American GFR (CKD) 111.6 (60.0-200.0); Albumin 3.2 g/dL (3.8-4.9); Albumin/Globulin Ratio 1.52 (1.60-3.17); Anion Gap 15.9 mmol/L (10.00-18.00); BUN/Creat Ratio 33.17 Ratio (12.00-20.00); Blood Urea Nitrogen 19.9 mg/dL (9.0-27.0); Calcium 8.9 mg/dL (8.7-10.3); Carbon Dioxide 21.1 mmol/L (20.0-27.5); Globulin 2.1 g/dL (1.6-3.3); Non-African American GFR(CKD) 96.3 (60.0-200.0); Potassium 4.9 mmol/L (3.5-5.5); Total Bilirubin 0.4 mg/dL (0.30-1.20); Total Protein 5.3 g/dL (6.2-8.2)
--- NOTE | 2021-07-03 16:33 | P.PN ---
Subjective Progress Note Date: 07/03/21 This is a 66-year-old female patient with past medical history of hypertension, lifetime nonsmoker, who presented to the emergency department on 06/29/2021 complaining of worsening shortness of breath. Patient was in the emergency department on 06/18/2021, was complaining of fever, body aches, shortness of breath, weakness and she was diagnosed with COVID-19 infection on June 14 2021. Chest x-ray at that time was showing mild heart failure versus interstitial pneumonia. Patient met the criteria for monoclonal antibodies, she received monoclonal antibodies on 06/18/2021. Patient symptoms have progressed, and upon presentation to the emergency department on 06/29/2021 she was noted to be hypoxic with a pulse ox in the 80s. She is still coughing, no phlegm production, no fever or chills, no chest pain or palpitations, no nausea vomiting or diarrhea. During her previous ER visit she was sent home with steroids which she has completed. Her EKG showed normal sinus rhythm without ST segment elevation or depression. Her admission blood work showed white blood cell count 15.3, hemoglobin was 13.8, d-dimer was significantly elevated at 10.48, but CT angiogram of the chest was negative for pulmonary embolism. Sodium is 134, potassium is 5.3, BUN was 27, creatinine 0.69, lactic acid was noted to be elevated at 2.5, troponin was negative at less than 0.012, LFTs were within normal limits. Patient was given IV hydration and she has received a total of 3 L of fluids, and currently her 0.9 normal saline is a 75 ML per hour, she was also started on Decadron 6 mg daily, prophylactic Lovenox and multivitamins. Lower extremity Dopplers for negative for DVT. On 07/01/2021 patient seen in follow-up on medical surgical floor, she is breathing fairly comfortably, but her oxygen demand has slightly increased and she is currently at 4 L of oxygen and her saturation is 93-94%, she is afebrile, hemodynamically she stable, occasional mild cough. No chest discomfort, she is tolerating oral intake, no acute events overnight, patient has not been able to lay on her stomach, she has been trying to lay on her sides. Patient continues on Decadron 6 mg daily, prophylactic Lovenox, she is on multivitamins. Today's labs have been noted, her white count is 15.3, hemoglobin is 11.8, electrolytes and renal profile are unremarkable, her lactic acid is 2.1, pro calcitonin level was negative, On 07/03/2021 patient seen in follow-up on medical surgical floor. She states she is doing better, breathing easier, she is on 4 L of oxygen pulse ox is 96%, her oxygen has been turned down to 3 L we'll continue weaning. She was outside the window for Remdesivir, her lung sounds are essentially clear to auscultation, no cough, no chest pain, vital signs have been stable, no fever or chills, she remains on Decadron 6 blood gram daily, Lovenox 40 mg daily, and multivitamins. Doing well. Objective - Vital Signs Vital signs: Vital Signs Temp 97.8 F 07/03/21 14:00 Pulse 75 07/03/21 14:00 Resp 22 07/03/21 14:00 BP 144/88 07/03/21 14:00 Pulse Ox 94 L 07/03/21 14:00 Intake & Output 07/02/21 07/03/21 07/03/21 18:59 06:59 18:59 Intake Total 240 600 Balance 240 600 Intake: Oral 240 600 Other: Voiding Method Toilet Toilet # Voids 4 3 - Exam GENERAL EXAM: Alert, very pleasant, 66-year-old white female, on 4 L of oxygen with a pulse ox of 96%, comfortable in no apparent distress. HEAD: Normocephalic/atraumatic. EYES: Normal reaction of pupils, equal size. Conjunctiva pink, sclera white. NOSE: Clear with pink turbinates. THROAT: No erythema or exudates. NECK: No masses, no JVD, no thyroid enlargement, no adenopathy. CHEST: No chest wall deformity. Symmetrical expansion. LUNGS: Equal air entry no crackles, no rhonchi, no wheezing CVS: Regular rate and rhythm, normal S1 and S2, no gallops, no murmurs, no rubs ABDOMEN: Soft, nontender. No hepatosplenomegaly, normal bowel sounds, no guarding or rigidity. EXTREMITIES: No clubbing, no edema, no cyanosis, 2+ pulses and upper and lower extremities. MUSCULOSKELETAL: Muscle strength and tone normal. SPINE: No scoliosis or deformity SKIN: No rashes CENTRAL NERVOUS SYSTEM: Alert and oriented -3. No focal deficits, tone is normal in all 4 extremities. PSYCHIATRIC: Alert and oriented -3. Appropriate affect. Intact judgment and insight. - Labs CBC & Chem 7: 07/03/21 05:26 07/03/21 05:26 Labs: Abnormal Lab Results - Last 24 Hours (Table) 07/02/21 07/02/21 07/03/21 Range/Units 18:37 21:52 05:26 WBC 10.05 H (4.50-10.00) X 10*3/uL MCHC 29.8 L (32.0-37.0) g/dL Immature Gran # 0.18 H (0.00-0.04) X 10*3/uL Neutrophils # 8.06 H (1.80-7.70) X 10*3/uL Eosinophils # 0.02 L (0.04-0.35) X 10*3/uL BUN/Creatinine Ratio (12.00-20.00) Ratio Glucose (70-110) mg/dL Plasma Lactic Acid Cecilio 3.9 H* 2.2 H* (0.7-2.0) mmol/L Total Protein (6.2-8.2) g/dL Albumin (3.8-4.9) g/dL Albumin/Globulin Ratio (1.60-3.17) g/dL 07/03/21 Range/Units 05:26 WBC (4.50-10.00) X 10*3/uL MCHC (32.0-37.0) g/dL Immature Gran # (0.00-0.04) X 10*3/uL Neutrophils # (1.80-7.70) X 10*3/uL Eosinophils # (0.04-0.35) X 10*3/uL BUN/Creatinine Ratio 33.17 H (12.00-20.00) Ratio Glucose 111 H (70-110) mg/dL Plasma Lactic Acid Cecilio (0.7-2.0) mmol/L Total Protein 5.3 L (6.2-8.2) g/dL Albumin 3.2 L (3.8-4.9) g/dL Albumin/Globulin Ratio 1.52 L (1.60-3.17) g/dL Assessment and Plan Plan: Assessment: #1. Acute hypoxic respiratory failure due to acute COVID-19 pneumonia, patient was diagnosed on 06/14/2021. She did receive monoclonal antibodies on 06/18/2021. Non-vaccinated against COVID-19. Is outside the window for Remdesivir #2. Elevated D-dimer of 10.4 age, and CTA chest and lower extremity Doppler were negative for PE and DVT #3. Lactic acidosis, has actually increased after fluid resuscitation, pro- calcitonin level is negative at 0.05, doubt possibility of sepsis #4. Mild hyponatremia, improved with IV hydration #5. History of hypertension #6. Lifetime nonsmoker Plan: Patient is doing well, oxygen has been turned down to 3 L, continue weaning to maintain O2 sats at or above 90% Breathing comfortably, no acute events overnight, Continue with Decadron, and Lovenox, continue multivitamins If Remains stable may consider discharge home in the next 24 hours I performed a history & physical examination of the patient and discussed their management with my nurse practitioner, Yesi Rose. I reviewed the nurse practitioner's note and agree with the documented findings and plan of care. Lung sounds are positive for diminished breath sounds throughout the lung montemayor. The findings and the impression was discussed with the patient. I attest to the documentation by the nurse practitioner. Time with Patient: Less than 30
[2021-07-03] MEDS: LOSARTAN 50 MG TAB PO SCH (20:50)
[2021-07-03 22:23] VITALS: RESP 16
[2021-07-04] MEDS: ENOXAPARIN 40 MG/0.4 ML SYRINGE SQ SCH (07:27)
[2021-07-04] MEDS: dexAMETHasone 2 MG TAB PO SCH (07:27)
[2021-07-04] MEDS: CHOLECALCIFEROL 25 MCG (1000 IU) TABLET PO SCH (07:27)
[2021-07-04] MEDS: ASCORBIC ACID 500 MG TAB PO SCH (07:27)
[2021-07-04] MEDS: ZINC SULFATE 220 MG CAP PO SCH (07:27)
[2021-07-04 09:28] LABS: African American GFR (CKD) 106.8 (60.0-200.0); Albumin 3.8 g/dL (3.8-4.9); Albumin/Globulin Ratio 1.76 (1.60-3.17); Anion Gap 11.5 mmol/L (10.00-18.00); BUN/Creat Ratio 29.11 Ratio (12.00-20.00); Calcium 9.4 mg/dL (8.7-10.3); Carbon Dioxide 28.2 mmol/L (20.0-27.5); Globulin 2.2 g/dL (1.6-3.3); Non-African American GFR(CKD) 92.1 (60.0-200.0); Potassium 4.8 mmol/L (3.5-5.5); Total Bilirubin 0.6 mg/dL (0.30-1.20)
[2021-07-04 09:40] VITALS: BP 116/69; PULSE 67; TEMP 97.9
[2021-07-04 09:57] LABS: Basophils # (A) 0.04 X 10*3/uL (0.00-0.10); Basophils % (A) 0.4 %; Eosinophils # (A) 0.03 X 10*3/uL (0.04-0.35); Eosinophils % (A) 0.3 %; HCT 43.7 % (37.2-46.3); HGB 13.2 g/dL (12.0-15.0); Lymphocytes # (A) 1.38 X 10*3/uL (0.90-5.00); Lymphocytes % (A) 14.9 %; MCH 28.9 pg (27.0-32.0); MCHC 30.2 g/dL (32.0-37.0); MCV 95.6 fL (80.0-97.0); Mean Platelet Volume 9.1 fL (9.5-12.2); Monocytes % (A) 6.5 %; Neutrophils # (A) 6.95 X 10*3/uL (1.80-7.70); Neutrophils % (A) 74.8 %; Platelet Count 202 X 10*3/uL (140-440); RBC 4.57 X 10*6/uL (4.10-5.20); RDW 13.6 % (11.5-14.5); WBC 9.29 X 10*3/uL (4.50-10.00)
--- NOTE | 2021-07-04 10:07 | P.DS ---
Providers Date of admission: 06/29/21 19:03 Expected date of discharge: 07/04/21 Attending physician: Ajay Park MD Consults: 06/29/21 18:53 Consult Physician Urgent Consulting Provider: Last Jones Reason/Comments: COVID pneumonia Do you want consulting provider notified?: Yes Primary care physician: [facility] Hospital Course: 66-year-old female admitted to the hospital for acute respiratory failure due to COVID-19 pneumonia started on IV steroids and supplemental oxygen the condition of the patient improved During the hospital stay the patient remained stable but although continued to be on oxygen the patient wants to go home today states that shortness of breath significantly improved Physical exam stable Chest no respiratory accessory muscle usage Abdomen no distention Extremities slight edema bilaterally Alert oriented 3 Discharge plan Acute hypoxic respiratory failure COVID-19 infection Hypertension Patient to follow-up with primary care physician Patient has been discharged on 2-3 L of oxygen follow up closely with primary care physician Discharge medications see list Patient Condition at Discharge: Stable Plan - Discharge Summary New Discharge Prescriptions: New Cefdinir 300 mg PO Q12HR 7 Days #14 cap dexAMETHasone ORAL [Hexadrol] 6 mg PO DAILY 5 Days #5 tab Continue Cholecalciferol [Vitamin D3 (25 Mcg = 1000 Iu)] 25 mcg PO DAILY hydroCHLOROthiazide 25 mg PO DIRECTED Elderberry Fruit and Flower [Black Elderberry 575 mg Cap] 1 cap PO DAILY Losartan Potassium 100 mg PO HS Zinc Gluconate [Zinc] 50 mg PO DAILY Ascorbic Acid [Vitamin C] 1,000 mg PO DAILY Discharge Medication List Ascorbic Acid [Vitamin C] 1,000 mg PO DAILY 06/29/21 [History] Cholecalciferol [Vitamin D3 (25 Mcg = 1000 Iu)] 25 mcg PO DAILY 06/29/21 [History] Elderberry Fruit and Flower [Black Elderberry 575 mg Cap] 1 cap PO DAILY 06/29/21 [History] Losartan Potassium 100 mg PO HS 06/29/21 [History] Zinc Gluconate [Zinc] 50 mg PO DAILY 06/29/21 [History] hydroCHLOROthiazide 25 mg PO DIRECTED 06/29/21 [History] Cefdinir 300 mg PO Q12HR 7 Days #14 cap 07/04/21 [Rx] dexAMETHasone ORAL [Hexadrol] 6 mg PO DAILY 5 Days #5 tab 12/20/21 [Rx] Follow up Appointment(s)/Referral(s): Roshan Doran MD [Primary Care Provider] - 1-2 days
--- NOTE | 2021-07-04 14:04 | P.PN ---
Subjective Progress Note Date: 07/04/21 This is a 66-year-old female patient with past medical history of hypertension, lifetime nonsmoker, who presented to the emergency department on 06/29/2021 complaining of worsening shortness of breath. Patient was in the emergency department on 06/18/2021, was complaining of fever, body aches, shortness of breath, weakness and she was diagnosed with COVID-19 infection on June 14 2021. Chest x-ray at that time was showing mild heart failure versus interstitial pneumonia. Patient met the criteria for monoclonal antibodies, she received monoclonal antibodies on 06/18/2021. Patient symptoms have progressed, and upon presentation to the emergency department on 06/29/2021 she was noted to be hypoxic with a pulse ox in the 80s. She is still coughing, no phlegm production, no fever or chills, no chest pain or palpitations, no nausea vomiting or diarrhea. During her previous ER visit she was sent home with steroids which she has completed. Her EKG showed normal sinus rhythm without ST segment elevation or depression. Her admission blood work showed white blood cell count 15.3, hemoglobin was 13.8, d-dimer was significantly elevated at 10.48, but CT angiogram of the chest was negative for pulmonary embolism. Sodium is 134, potassium is 5.3, BUN was 27, creatinine 0.69, lactic acid was noted to be elevated at 2.5, troponin was negative at less than 0.012, LFTs were within normal limits. Patient was given IV hydration and she has received a total of 3 L of fluids, and currently her 0.9 normal saline is a 75 ML per hour, she was also started on Decadron 6 mg daily, prophylactic Lovenox and multivitamins. Lower extremity Dopplers for negative for DVT. On 07/01/2021 patient seen in follow-up on medical surgical floor, she is breathing fairly comfortably, but her oxygen demand has slightly increased and she is currently at 4 L of oxygen and her saturation is 93-94%, she is afebrile, hemodynamically she stable, occasional mild cough. No chest discomfort, she is tolerating oral intake, no acute events overnight, patient has not been able to lay on her stomach, she has been trying to lay on her sides. Patient continues on Decadron 6 mg daily, prophylactic Lovenox, she is on multivitamins. Today's labs have been noted, her white count is 15.3, hemoglobin is 11.8, electrolytes and renal profile are unremarkable, her lactic acid is 2.1, pro calcitonin level was negative, On 07/03/2021 patient seen in follow-up on medical surgical floor. She states she is doing better, breathing easier, she is on 4 L of oxygen pulse ox is 96%, her oxygen has been turned down to 3 L we'll continue weaning. She was outside the window for Remdesivir, her lung sounds are essentially clear to auscultation, no cough, no chest pain, vital signs have been stable, no fever or chills, she remains on Decadron 6 blood gram daily, Lovenox 40 mg daily, and multivitamins. Doing well. On 07/04/2021 patient seen in follow-up on medical surgical floor. She is breathing comfortably, she is currently on 3 L of oxygen, her pulse ox is 96%, no fever or chills, she's been tolerating ambulation about the room, vital signs have been stable, she had no acute events overnight. Occasional limited cough, no completes of chest discomfort. Patient has been treated with oral Decadron, multivitamins, she was outside the window for Remdesivir, she received prophylactic anticoagulation. Clinically remains stable, and improved, and she is being discharged home today Objective - Vital Signs Vital signs: Vital Signs Temp 97.9 F 07/04/21 09:40 Pulse 67 07/04/21 09:40 Resp 16 07/04/21 09:40 BP 116/69 07/04/21 09:40 Pulse Ox 96 07/04/21 09:40 Intake & Output 07/03/21 07/04/21 07/04/21 18:59 06:59 18:59 Intake Total 600 Balance 600 Intake: Oral 600 Other: Voiding Method Toilet # Voids 4 - Exam GENERAL EXAM: Alert, very pleasant, 66-year-old white female, on 3 L of oxygen with a pulse ox of 96%, comfortable in no apparent distress. HEAD: Normocephalic/atraumatic. EYES: Normal reaction of pupils, equal size. Conjunctiva pink, sclera white. NOSE: Clear with pink turbinates. THROAT: No erythema or exudates. NECK: No masses, no JVD, no thyroid enlargement, no adenopathy. CHEST: No chest wall deformity. Symmetrical expansion. LUNGS: Equal air entry no crackles, no rhonchi, no wheezing CVS: Regular rate and rhythm, normal S1 and S2, no gallops, no murmurs, no rubs ABDOMEN: Soft, nontender. No hepatosplenomegaly, normal bowel sounds, no guarding or rigidity. EXTREMITIES: No clubbing, no edema, no cyanosis, 2+ pulses and upper and lower extremities. MUSCULOSKELETAL: Muscle strength and tone normal. SPINE: No scoliosis or deformity SKIN: No rashes CENTRAL NERVOUS SYSTEM: Alert and oriented -3. No focal deficits, tone is normal in all 4 extremities. PSYCHIATRIC: Alert and oriented -3. Appropriate affect. Intact judgment and insight. - Labs CBC & Chem 7: 07/04/21 06:03 07/04/21 06:03 Labs: Abnormal Lab Results - Last 24 Hours (Table) 07/04/21 07/04/21 Range/Units 06:03 06:03 MCHC 30.2 L (32.0-37.0) g/dL MPV 9.1 L (9.5-12.2) fL Immature Gran # 0.29 H (0.00-0.04) X 10*3/uL Eosinophils # 0.03 L (0.04-0.35) X 10*3/uL Carbon Dioxide 28.2 H (20.0-27.5) mmol/L BUN/Creatinine Ratio 29.11 H (12.00-20.00) Ratio Glucose 115 H (70-110) mg/dL Total Protein 6.0 L (6.2-8.2) g/dL Assessment and Plan Plan: Assessment: #1. Acute hypoxic respiratory failure due to acute COVID-19 pneumonia, patient was diagnosed on 06/14/2021. She did receive monoclonal antibodies on 06/18/2021. Non-vaccinated against COVID-19. Is outside the window for Remdesivir #2. Elevated D-dimer of 10.4 age, and CTA chest and lower extremity Doppler were negative for PE and DVT #3. Lactic acidosis, has actually increased after fluid resuscitation, pro- calcitonin level is negative at 0.05, doubt possibility of sepsis #4. Mild hyponatremia, improved with IV hydration #5. History of hypertension #6. Lifetime nonsmoker Plan: Patient has remained stable the last 24 hours, continues to improve She remains on 3 L of oxygen No acute events overnight, no fever or chills, She is tolerating ambulation Patient is being discharged home today She stable for discharge from pulmonary perspective. I performed a history & physical examination of the patient and discussed their management with my nurse practitioner, Yesi Rose. I reviewed the nurse practitioner's note and agree with the documented findings and plan of care. Lung sounds are positive for diminished breath sounds throughout the lung montemayor. The findings and the impression was discussed with the patient. I attest to the documentation by the nurse practitioner. Time with Patient: Less than 30
== END 2021-07-04 13:25 | disposition home or self-care (01) | DRG 177 ==
LOC: EC 14:54 → 4SSUR 19:03
PROVIDERS: ADMIT Internal Medicine; ATTEND Internal Medicine
DX: U07.1 COVID-19 (principal); J12.82 Pneumonia due to coronavirus disease 2019; J96.01 Acute respiratory failure with hypoxia; E87.2 Acidosis; E87.1 Hypo-osmolality and hyponatremia; I10 Essential (primary) hypertension; E87.5 Hyperkalemia; E86.0 Dehydration; E66.9 Obesity, unspecified; Z68.32 Body mass index [BMI] 32.0-32.9, adult; Z79.899 Other long term (current) drug therapy; Z90.710 Acquired absence of both cervix and uterus; Z85.42 Personal history of malignant neoplasm of other parts of uterus; Z92.3 Personal history of irradiation; Z92.21 Personal history of antineoplastic chemotherapy; Z87.2 Personal history of diseases of the skin and subcutaneous tissue; Z98.891 History of uterine scar from previous surgery; Z98.890 Other specified postprocedural states; Z88.0 Allergy status to penicillin; Z88.8 Allergy status to other drugs, medicaments and biological substances; Z83.2 Family history of diseases of the blood and blood-forming organs and certain disorders involving the immune mechanism
CPT/HCPCS: 36415; 71275; 80048; 80053; 83605; 83735; 84145; 84484; 85025; 85027; 85379; 85610; 85730; 87635; 93005; 93970; 94640; 94760; 96361; 96374; 99285

== ENCOUNTER → 2021-09-22 | Outpatient (CLI) | payer BC ==
--- NOTE | 2021-09-26 10:43 | MM ---
Reason for exam: screening (asymptomatic). Last mammogram was performed 1 year ago. History: Patient is postmenopausal and has history of other cancer at age 62. Family history of breast cancer in paternal grandmother at age 50 and breast cancer in maternal grandmother at age 50. Benign excisional biopsy of the right breast. Physical Findings: A clinical breast exam by your physician is recommended on an annual basis and results should be correlated with mammographic findings. MG Screening Mammo w CAD Bilateral CC and MLO view(s) were taken. Prior study comparison: September 17, 2020, bilateral MG screening mammo w CAD. July 02, 2019, bilateral MG screening mammo w CAD. The breast tissue is almost entirely fat. Stable scattered punctate calcifications bilaterally and oil cyst calcifications on the left. No significant changes when compared with prior studies. ASSESSMENT: Benign, BI-RAD 2 RECOMMENDATION: Routine screening mammogram of both breasts in 1 year.
== END | disposition home or self-care (01) ==
LOC: RADMAMWWP 10:18
PROVIDERS: ATTEND Obstetrics & Gynecology
DX: Z12.31 Encounter for screening mammogram for malignant neoplasm of breast (principal); Z80.3 Family history of malignant neoplasm of breast; Z78.0 Asymptomatic menopausal state
CPT/HCPCS: 77067

== ENCOUNTER 2021-12-22 10:40 | Emergency (ER) | payer BC ==
[2021-12-22 10:49] VITALS: RESP 18; TEMP 98.2
[2021-12-22 11:12] LABS: Basophils # (A) 0.1 k/uL (0-0.2); Basophils % (A) 1 %; Eosinophils # (A) 0.2 k/uL (0-0.7); Eosinophils % (A) 2 %; HCT 42.5 % (34.0-46.0); HGB 13.2 gm/dL (11.4-16.0); Lymphocytes % (A) 30 %; MCH 28.4 pg (25.0-35.0); MCHC 31.1 g/dL (31.0-37.0); MCV 91.4 fL (80.0-100.0); Mean Platelet Volume 6.7; Monocytes # (A) 0.3 k/uL (0-1.0); Monocytes % (A) 4 %; Neutrophils % (A) 61 %; Platelet Count 307 k/uL (150-450); RBC 4.65 m/uL (3.80-5.40); RDW 12.9 % (11.5-15.5); WBC 6.6 k/uL (3.8-10.6)
[2021-12-22 11:35] LABS: Anion Gap 8 mmol/L; Blood Urea Nitrogen 15 mg/dL (7-17); Carbon Dioxide 29 mmol/L (22-30); Chloride 101 mmol/L (98-107); Glucose 124 mg/dL (74-99); Potassium 3.5 mmol/L (3.5-5.1); Sodium 138 mmol/L (137-145)
[2021-12-22 11:36] LABS: ALT 34 U/L (4-34); AST 32 U/L (14-36); African American GFR (CKD) >90 (>60 ml/min/1.73 sqM); Albumin 4.3 g/dL (3.5-5.0); Alkaline Phosphatase 99 U/L (38-126); Calcium 9.4 mg/dL (8.4-10.2); Non-African American GFR(CKD) 88 (>60 ml/min/1.73 sqM); Total Bilirubin 0.5 mg/dL (0.2-1.3); Total Protein 6.7 g/dL (6.3-8.2)
--- NOTE | 2021-12-22 14:25 | ED ---
General Adult HPI - General Chief complaint: Dizziness Stated complaint: Dizziness, near syncope, chest pain Time Seen by Provider: 12/22/21 14:15 Source: patient, RN notes reviewed, old records reviewed Mode of arrival: wheelchair Limitations: no limitations - History of Present Illness Initial comments: Well-appearing, pleasant 66-year-old female presents to the emergency room with complaints of 2 weeks of intermittent dizziness with episodes lasting 1-2 minutes and resolving on their own. She states her last episode was yesterday. She states 4 days ago she developed some tingling in her chest that lasted just a couple of minutes and resolved on its own. She has had a history of vertigo but states this feels different than vertigo. She is concerned for TIAs. She states a family member checked her heart rate at home and said that it was irregular. She states she does have family members that have had strokes. She did call her primary care doctor who recommended she come to the emergency room for evaluation. She has had a history of hypertension, uterine cancer with chemotherapy in 2018. She has no history of irregular heart rate. -: week(s) (2) Location: head Radiation: non-radiation Severity scale (1-10): 0 Consistency: now resolved Improves with: none Worsens with: none Associated Symptoms: chest pain, headaches, other (dizziness) Treatments Prior to Arrival: none - Related Data Home Medications Medication Instructions Recorded Confirmed Ascorbic Acid [Vitamin C] 1,000 mg PO DAILY 06/29/21 12/22/21 Losartan Potassium 100 mg PO DAILY 06/29/21 12/22/21 hydroCHLOROthiazide 25 mg PO DAILY 06/29/21 12/22/21 L.acidoph,Paracasei, B.lactis 1 cap PO DAILY 12/22/21 12/22/21 [Probiotic] Allergies Allergy/AdvReac Type Severity Reaction Status Date / Time amoxicillin [From Augmentin] AdvReac states Verified 12/22/21 15:39 "doesn't work for me" clavulanic acid AdvReac states Verified 12/22/21 15:39 [From Augmentin] "doesn't work for me" Review of Systems ROS Statement: Those systems with pertinent positive or pertinent negative responses have been documented in the HPI. ROS Other: All systems not noted in ROS Statement are negative. Past Medical History Past Medical History: Cancer, Hypertension Additional Past Medical History / Comment(s): uterine CA-radiation May 2018,chemo 2018 History of Any Multi-Drug Resistant Organisms: None Reported Past Surgical History: Section, Hysterectomy Additional Past Surgical History / Comment(s): c sections x3,lump removed breast Past Anesthesia/Blood Transfusion Reactions: No Reported Reaction Additional Past Anesthesia/Blood Transfusion Reaction / Comment(s): no hx blood transfusion Past Psychological History: No Psychological Hx Reported Smoking Status: Never smoker Past Alcohol Use History: Rare Past Drug Use History: None Reported - Past Family History Mother Family Medical History: Deep Vein Thrombosis (DVT) Father Family Medical History: Cancer General Exam Limitations: no limitations General appearance: alert, in no apparent distress Head exam: Present: atraumatic, normocephalic Eye exam: Present: normal appearance, PERRL, EOMI. Absent: scleral icterus, conjunctival injection, nystagmus, periorbital swelling, periorbital tenderness ENT exam: Present: normal exam, normal oropharynx, mucous membranes moist Neck exam: Present: normal inspection, full ROM. Absent: tenderness, meningismus Respiratory exam: Present: normal lung sounds bilaterally. Absent: respiratory distress, accessory muscle use Cardiovascular Exam: Present: regular rate, normal rhythm, normal heart sounds Extremities exam: Present: normal capillary refill. Absent: tenderness, pedal edema Neurological exam: Present: alert, oriented X3, CN II-XII intact Expanded Patient oriented to: Present: person, place, time Speech: Present: fluid speech Cranial nerves: EOM's Intact: Normal, Gag Reflex: Normal, Tongue Deviation: Normal Cerebellar function: Finger to Nose: Normal, Heel to Park: Normal Motor strength exam: RUE: 5, LUE: 5, RLE: 5, LLE: 5 Eye Response: (4) open spontaneously Motor Response: (6) obeys commands Verbal Response: (5) oriented Damian Total: 15 Psychiatric exam: Present: normal affect, normal mood Skin exam: Present: warm, dry, intact, normal color. Absent: cyanosis, diaphoretic, petechiae, pallor Course Vital Signs 12/22/21 12/22/21 10:45 16:15 Temperature 98.2 F Pulse Rate 89 87 Respiratory 18 18 Rate Blood Pressure 130/66 137/84 O2 Sat by Pulse 96 96 Oximetry EKG Findings - EKG Results: EKG: sinus rhythm (Ventricular rate 77, TN interval 0.173, QRS 0.104, QTC 0.420) Medical Decision Making - Medical Decision Making Vital signs are stable, EKG shows sinus rhythm with no ectopy. Heart sounds are normal. There are no carotid bruits. Labs are unremarkable. Chest x-ray shows no acute cardiopulmonary process. Tri demarco has been asymptomatic in the emergency room for over 5 hours. I did discuss with the patient the importance of following up with her primary care doctor regarding her concern of irregular heartbeat and intermittent dizziness. She does have an appointment scheduled with her primary care doctor. She was instructed to return to the emergency room with a new or concerning symptoms including focal weakness, persistent dizziness, headaches or chest pain or palpitations. She is agreeable to this plan of care. Case discussed with Dr. Golden. - Lab Data Result diagrams: 12/22/21 10:51 12/22/21 10:51 Lab Results 12/22/21 12/22/21 12/22/21 Range/Units 10:51 10:51 10:51 WBC 6.6 (3.8-10.6) k/uL RBC 4.65 (3.80-5.40) m/uL Hgb 13.2 (11.4-16.0) gm/dL Hct 42.5 (34.0-46.0) % MCV 91.4 (80.0-100.0) fL MCH 28.4 (25.0-35.0) pg MCHC 31.1 (31.0-37.0) g/dL RDW 12.9 (11.5-15.5) % Plt Count 307 (150-450) k/uL MPV 6.7 Neutrophils % 61 % Lymphocytes % 30 % Monocytes % 4 % Eosinophils % 2 % Basophils % 1 % Neutrophils # 4.0 (1.3-7.7) k/uL Lymphocytes # 2.0 (1.0-4.8) k/uL Monocytes # 0.3 (0-1.0) k/uL Eosinophils # 0.2 (0-0.7) k/uL Basophils # 0.1 (0-0.2) k/uL Sodium 138 (137-145) mmol/L Potassium 3.5 (3.5-5.1) mmol/L Chloride 101 (98-107) mmol/L Carbon Dioxide 29 (22-30) mmol/L Anion Gap 8 mmol/L BUN 15 (7-17) mg/dL Creatinine 0.73 (0.52-1.04) mg/dL Est GFR (CKD-EPI)AfAm >90 (>60 ml/min/1.73 sqM) Est GFR (CKD-EPI)NonAf 88 (>60 ml/min/1.73 sqM) Glucose 124 H (74-99) mg/dL Calcium 9.4 (8.4-10.2) mg/dL Total Bilirubin 0.5 (0.2-1.3) mg/dL AST 32 (14-36) U/L ALT 34 (4-34) U/L Alkaline Phosphatase 99 (38-126) U/L Troponin I <0.012 (0.000-0.034) ng/mL Total Protein 6.7 (6.3-8.2) g/dL Albumin 4.3 (3.5-5.0) g/dL Disposition Clinical Impression: Dizziness Disposition: HOME SELF-CARE Condition: Good Instructions (If sedation given, give patient instructions): Dizziness (ED) Additional Instructions: Follow-up with your primary care doctor next week. Keep a diary of your symptoms including how long they lasted, and what you were doing at the time. Return to the emergency room with any new or concerning symptoms including headache, weakness on one side, inability to ambulate, chest pain or difficulty breathing. Is patient prescribed a controlled substance at d/c from ED?: No Referrals: Roshan Doran MD [Primary Care Provider] - 1-2 days Time of Disposition: 15:56
--- NOTE | 2021-12-22 15:37 | XR ---
EXAMINATION TYPE: XR chest 2V DATE OF EXAM: 12/22/2021 COMPARISON: 06/18/2021 INDICATION: Chest pain short of breath TECHNIQUE: Frontal and lateral views of the chest are obtained. FINDINGS: The heart size is normal. The pulmonary vasculature is normal. The lungs are clear. IMPRESSION: 1. No acute pulmonary process.
[2021-12-22 16:16] VITALS: BP 137/84; PULSE 87
== END 2021-12-22 16:19 | disposition home or self-care (01) ==
LOC: EC 10:40
DX: R42 Dizziness and giddiness (principal); I10 Essential (primary) hypertension; Z79.899 Other long term (current) drug therapy
CPT/HCPCS: 36415; 71046; 80053; 84484; 85025; 93005; 99285

== ENCOUNTER → 2022-05-16 | Outpatient (CLI) | payer MEDICARE ==
[2022-05-16 12:01] LABS: African American GFR (CKD) >90 (>60 ml/min/1.73 sqM); Blood Urea Nitrogen 14 mg/dL (7-17); Non-African American GFR(CKD) 89 (>60 ml/min/1.73 sqM)
--- NOTE | 2022-05-16 13:11 | CT ---
EXAMINATION TYPE: CT ChestAbdPelvis w con DATE OF EXAM: 05/16/2022 COMPARISON: Prior CT May 09, 2021 and older CTs HISTORY: Endometrial CA CT DLP: 1952 mGycm. Automated Exposure Control for Dose Reduction was Utilized. CONTRAST: CT scan of the thorax, abdomen and pelvis is performed with oral and with IV Contrast, patient inject ed with 70 mL of Isovue 300. FINDINGS: LUNGS: Mild to moderate scattered parenchymal linear scarring and/or atelectasis is now present more prominent from prior studies. No pleural effusion or pneumothorax seen bilaterally. MEDIASTINUM: There are no greater than 1 cm hilar or mediastinal lymph nodes. No cardiomegaly or pe ricardial effusion is seen. LIVER/GB: Visualized liver heterogeneously hypodense consistent with diffuse fatty infiltration. PANCREAS: No significant abnormality is seen. SPLEEN: No significant abnormality is seen. ADRENALS: No significant abnormality is seen. KIDNEYS: Symmetric cortical medullary uptake and excretion without hydronephrosis seen bilaterally. BOWEL: Oral contrast reaches level of the left colon. No suspicious small or large bowel dilatation GENITAL ORGANS: Uterus surgically absent. Scattered bilateral pelvic phleboliths redemonstrated. LYMPH NODES: No greater than 1cm abdominal or pelvic lymph nodes are appreciated. OSSEOUS STRUCTURES: Mild disc space narrowing and anterior spurring L2-L3 level. Facet arthropathy lo wer lumbar levels.. OTHER: Small fat-containing right inguinal hernia. IMPRESSION: No suspicious new mass or adenopathy to suggest active neoplastic recurrence.
== END | disposition home or self-care (01) ==
LOC: RADCTMAIN 10:01
PROVIDERS: ATTEND Internal Medicine Hematology & Oncology
DX: C54.1 Malignant neoplasm of endometrium (principal)
CPT/HCPCS: 82565; 84520; 71260; 74177; 36415; Q9967 ×2

== ENCOUNTER → 2022-06-12 | Outpatient (CLI) | payer MEDICARE ==
--- NOTE | 2022-06-13 07:32 | BD ---
EXAMINATION TYPE: Axial Bone Density DATE OF EXAM: 06/12/2022 COMPARISON: NONE CLINICAL HISTORY: 67 years year old Female. ICD-10 CODE: M89.9 unsp disorder of bone Height: 5 fFT 9 IN Weight: 225 FRAX RISK QUESTIONS: Alcohol (3 or more units per day): NO Family History (Parent hip fracture): NO Glucocorticoids (More than 3mos): NO (Ex: prednisone, prednisolone, methylprednisolone, dexamethasone, and hydrocortisone). History of Fracture in Adulthood: NO Secondary Osteoporosis: 1. Type 1 Diabetes: NO 2. Hyperthyroidism: NO 3. Menopause before 45: NO 4. Malnutrition: NO 5. Chronic liver disease: NO Rheumatoid Arthritis: NO Current Tobacco Use: NO RISK FACTORS HISTORY OF: Surgery to Spine/Hip(right/left)/Wrist (right/left): NO Family History of Osteoporosis: YES Active: YES Diet low in dairy products/other sources of calcium: NO Postmenopausal woman: YES Take estrogen and/or progesterone medications: NO Lost more than 2 inches in height since high school: NO Frequent falls: NO Poor Health: GOOD Hyperparathyroidism: NO Adrenal Insufficiency: NO MEDICATIONS: Additional Medications: LOSARTAN, HYDROCHLOROTHIAZIDE, Additional History: UTERINE CANCER, CHEMO AND RADIAITION EXAM MEASUREMENTS: Bone mineral densitometry was performed using the [employer] System. Bone mineral density as measured about the Lumbar spine is: ----- L1-L4(G/cm2): 1.486 T Score Values are as follows: ----- L1: 1.7 ----- L2: 1.3 ----- L3: 3.3 ----- L4: 3.4 ----- L1-L4: 2.[address] KAM OFFICE Bone mineral density about the R hip (g/cm2): 1.012 Bone mineral density about the L hip (g/cm2): 1.084 T Score values are as follows: -----R Neck: -0.2 -----L Neck: 0.3 -----R Total: 1.4 -----L Total: 0.[address] KAM OFFICE FRAX%s: The graph provided illustrates a 2.9 % chance for a major osteoporotic fx and a 0.2 % chance for the hips probability for fx in 10 years time. IMPRESSION: Normal (Values between +1 and -1 indicate normal bone mass). Consider repeating this study in 5 year s or sooner if there is some new clinical indication. NOTE: T-SCORE=SD OF THE YOUNG ADULT MEAN.
== END | disposition home or self-care (01) ==
LOC: RADBDWWP 10:13
PROVIDERS: ATTEND Family Medicine
DX: M89.9 Disorder of bone, unspecified (principal)
CPT/HCPCS: 77080

== ENCOUNTER → 2022-09-27 | Outpatient (CLI) | payer MEDICARE ==
--- NOTE | 2022-09-28 07:50 | MM ---
Reason for Exam: Screening (asymptomatic). Last screening mammogram was performed 12 month(s) ago. Patient History: Menarche at age 13. First Full-Term at age 26. Left ovary removed at age 62. Right ovary removed at age 62. Hysterectomy at age 62. Postmenopausal. Patient has history of breast feeding. Benign Excisional Biopsy on the right side. Paternal grandmother had breast cancer, age 50. Maternal grandmother had breast cancer, age 50. Risk Values: Kathi 5 year model risk: 1.9%. NCI Lifetime model risk: 7.2%. Prior Study Comparison: 07/02/2019 Bilateral Screening Mammogram, [facility]. 09/17/2020 Bilateral Screening Mammogram, [facility]. 09/22/2021 Bilateral Screening Mammogram, [facility]. Tissue Density: The breast tissue is almost entirely fat. Findings: Analyzed By CAD. There is no suspicious group of microcalcifications or new suspicious mass in either breast. Overall Assessment: Negative, BI-RAD 1 Management: Screening Mammogram of both breasts in 1 year. A clinical breast exam by your physician is recommended on an annual basis and results should be correlated with mammographic findings. [facility] will attempt to contact patient to return for supplemental views and ultrasound if indicated. Electronically signed and approved by: Last Knight DO
== END | disposition home or self-care (01) ==
LOC: RADMAMWWP 15:52
PROVIDERS: ATTEND Obstetrics & Gynecology
DX: Z12.31 Encounter for screening mammogram for malignant neoplasm of breast (principal); Z78.0 Asymptomatic menopausal state; Z80.3 Family history of malignant neoplasm of breast
CPT/HCPCS: 77067

== ENCOUNTER → 2023-05-21 | Outpatient (CLI) | payer MEDICARE ==
[2023-05-21 10:08] LABS: African American GFR (CKD) >90 (>60 ml/min/1.73 sqM); Blood Urea Nitrogen 12 mg/dL (7-17); Non-African American GFR(CKD) 83 (>60 ml/min/1.73 sqM)
--- NOTE | 2023-05-21 11:23 | CT ---
EXAMINATION TYPE: CT ChestAbdPelvis w con CT DLP: 1928.6 mGycm, Automated exposure control for dose reduction was used. DATE OF EXAM: 05/21/2023 10:59 AM COMPARISON: 05/16/2022 most recent. CLINICAL INDICATION:Female, 68 years old with history of C54.9 ENDOMETRIAL CANCER; PHH, f/u uterine C A Technique: Multiple axial images of the chest, abdomen, and pelvis were obtained. Two-dimensional cor onal and sagittal reconstructions were obtained. Contrast used:100 mL of Isovue 300 with IV Contrast, Oral contrast used: with Oral Contrast Findings: CHEST: LUNGS/ PLEURA: Scattered interstitial opacities are seen throughout the lungs. No focal consolidation , pneumothorax or pleural effusion. Finding could represent sequela prior atypical pneumonia. Finding s are relatively stable from 05/16/2022. AIRWAY: Patent and unremarkable. HEART: Size within normal limits. MEDIASTINUM: No gross evidence of adenopathy. VASCULATURE: No aortic aneurysm. MUSCULOSKELETAL: Mild disc degeneration changes are present throughout the thoracolumbar spine. SOFT TISSUES/LYMPH NODES: Unremarkable. LOWER NECK: No significant findings. ABDOMEN: ABDOMEN LIVER: Diffusely hypoattenuating parenchyma. GALLBLADDER AND BILE DUCTS: Unremarkable. PANCREAS: Unremarkable. SPLEEN: Unremarkable. ADRENAL GLANDS: Unremarkable. KIDNEYS AND URETERS: No evidence of hydronephrosis or renal calculus. The ureters are unremarkable. PELVIS BLADDER: Unremarkable REPRODUCTIVE: The uterus is surgically absent. No soft tissue in the surgical bed. ABDOMEN & PELVIS STOMACH AND BOWEL: No evidence of bowel obstruction. Is normal. PERITONEUM: No evidence of pneumoperitoneum or free fluid. VASCULATURE: No evidence of aortic aneurysm. MUSCULOSKELETAL: No acute osseous abnormalities. Mild disc degeneration changes are present throughou t the thoracolumbar spine. LYMPH NODES: No gross evidence for lymphadenopathy. SOFT TISSUE/ABDOMINAL WALL: Right fat-containing inguinal hernia. Small fat-containing umbilical mary kay ia. IMPRESSION: 1. No evidence for suspicious mass or lymphadenopathy. No finding to suggest recurrent malignancy. 2. Mild hepatic steatosis.
== END | disposition home or self-care (01) ==
LOC: RADCTMAIN 08:59
PROVIDERS: ATTEND Internal Medicine Hematology & Oncology
DX: C54.1 Malignant neoplasm of endometrium (principal); K76.0 Fatty (change of) liver, not elsewhere classified; Z85.42 Personal history of malignant neoplasm of other parts of uterus
CPT/HCPCS: 82565; 84520; 71260; 74177; 36415; Q9967

== ENCOUNTER → 2024-06-03 | Outpatient (CLI) | payer MEDICARE ==
[2024-06-03 13:55] LABS: African American GFR (CKD) >90 (>60 ml/min/1.73 sqM); Blood Urea Nitrogen 13 mg/dL (7-17); Non-African American GFR(CKD) 80 (>60 ml/min/1.73 sqM)
--- NOTE | 2024-06-03 16:16 | CT ---
EXAMINATION TYPE: CT ChestAbdPelvis w con CT DLP: 1845.5 mGycm, Automated exposure control for dose reduction was used. DATE OF EXAM: 06/03/2024 3:58 PM COMPARISON: Multiple CT Chest Abdomen Pelvis with most recent 05/21/2023. 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 Oral contrast was administered. Two-dimensional coronal an d sagittal reconstructions were obtained. Findings: CHEST: LUNGS/ PLEURA: Stable scattered peripheral interstitial opacities are seen throughout the lungs. No f ocal consolidation, pneumothorax or pleural effusion. No new suspicious pulmonary nodule or mass. AIRWAY: Patent and unremarkable. HEART: Size within normal limits.No pericardial effusion. MEDIASTINUM: No evidence of adenopathy. VASCULATURE: No aortic aneurysm. Minimal atherosclerotic calcification of the aortic arch. MUSCULOSKELETAL: Mild disc degeneration changes are present throughout the thoracolumbar spine. No ag gressive osseous lesion. No acute osseous abnormality. SOFT TISSUES/LYMPH NODES: Unremarkable. LOWER NECK: No significant findings. ABDOMEN: ABDOMEN LIVER: Diffusely hypoattenuating parenchyma. Region of focal fatty sparing adjacent to the gallbladde r fossa. GALLBLADDER AND BILE DUCTS: Unremarkable. PANCREAS: Unremarkable. SPLEEN: Unremarkable. ADRENAL GLANDS: Unremarkable. KIDNEYS AND URETERS: No evidence of hydronephrosis or renal calculus. The kidneys enhance symmetrical ly. Contrast is demonstrated within both collecting systems on the delayed phase. PELVIS BLADDER: Unremarkable REPRODUCTIVE: The uterus and ovaries are surgically absent. No abnormal soft tissue in the surgical b ed. ABDOMEN & PELVIS STOMACH AND BOWEL: Proximal duodenal diverticulum.No focal wall thickening or surrounding inflammator y changes. The appendix is within normal limits. No evidence of bowel obstruction. PERITONEUM: No evidence of pneumoperitoneum or free fluid. VASCULATURE: Mild atherosclerotic calcifications are present throughout the abdominal aorta and its b ranches. No direct aneurysm. MUSCULOSKELETAL: No acute osseous abnormalities. Mild disc degeneration changes are present throughou t the thoracolumbar spine. No aggressive osseous lesion. LYMPH NODES: No evidence for lymphadenopathy. SOFT TISSUE/ABDOMINAL WALL: Right fat-containing inguinal hernia. Tiny fat-containing umbilical herni a. IMPRESSION: 1. Postsurgical changes from total hysterectomy are redemonstrated without evidence for recurrent/me tastatic disease. 2. Hepatic steatosis. 3. Stable peripheral interstitial opacities throughout the lungs most consistent with interstitial p ulmonary fibrotic changes. [facility], , 06/03/2024 4:13 PM
== END | disposition home or self-care (01) ==
LOC: RADCTMAIN 13:14
PROVIDERS: ATTEND Internal Medicine Hematology & Oncology
DX: C54.9 Malignant neoplasm of corpus uteri, unspecified (principal); R91.8 Other nonspecific abnormal finding of lung field; K76.0 Fatty (change of) liver, not elsewhere classified; Z90.710 Acquired absence of both cervix and uterus
CPT/HCPCS: 82565; 84520; 71260; 74177; 36415; Q9967

== ENCOUNTER 2024-09-05 10:43 | Day surgery (SDC) | payer MEDICARE ==
[2024-09-03 12:06] VITALS: BMI 34.0
[2024-09-05] MEDS: IV FLUID CONTINUATION 1,000 ML IV ONE (12:27)
[2024-09-05] MEDS: LACTATED RINGERS 1,000 ML IV SCH (12:28)
[2024-09-05 12:29] LABS: Glucose,Whole Blood 97 mg/dL (70-110)
[2024-09-05 12:31] VITALS: TEMP 97.1
[2024-09-05] MEDS ORDERED: PROPOFOL 10 MG/ML 20 ML VIAL IV ONE (13:16)
--- NOTE | 2024-09-05 13:29 | P.PCN ---
Date of Procedure: 09/05/24 Procedure(s) Performed: BRIEF HISTORY: Patient is a 69-year-old pleasant white female scheduled for an elective colonoscopy as a part of screening for history of colon polyps. Last colonoscopy was 5 years ago and was noted to have a tubular adenoma. PROCEDURE PERFORMED: Colonoscopy snare polypectomy. PREOPERATIVE DIAGNOSIS: Screening for history of colon polyps. IV sedation per Anesthesia. PROCEDURE: After informed consent was obtained, the patient, was brought into the endoscopy unit. IV sedation was administered by Anesthesia under continuous monitoring. Digital rectal examination was normal. Initially the Olympus CF-160 flexible video colonoscope was then inserted in the rectum, gradually advanced into the cecum without any difficulty. Careful examination was performed as the scope was gradually being withdrawn. Ileocecal valve and the appendiceal orifice were visualized and appeared normal. Prep was excellent. Mucosa of the cecum, ascending colon, transverse colon, normal. In the ascending colon there was a 5 mm and 1 cm flat polyp removed by snare polypectomy. Rest of the descending colon, sigmoid colon, and rectum appeared normal. Retroflexion was performed in the rectum and no lesions were seen. The patient tolerated the procedure well. IMPRESSION: 5 mm and 1 cm descending colon polyp status post snare polypectomy Rest of the colon appeared normal RECOMMENDATIONS: Findings of this examination were discussed with the patient as well as her family. She was advised to follow-up with the biopsy results. If the biopsy reveals adenoma she can have repeat colonoscopy 3 years..
[2024-09-05 13:55] VITALS: BP 118/60; PULSE 68; RESP 18
== END 2024-09-05 14:10 | disposition home or self-care (01) ==
LOC: ORWHC2ENDO 10:43
PROVIDERS: ATTEND Internal Medicine Gastroenterology
DX: Z12.11 Encounter for screening for malignant neoplasm of colon (principal); Z86.0101 Personal history of adenomatous and serrated colon polyps; D12.4 Benign neoplasm of descending colon
CPT/HCPCS: 45385 ×2; 88305; J2704

== ENCOUNTER → 2025-01-19 | Outpatient (CLI) | payer MEDICARE ==
--- NOTE | 2025-01-19 12:12 | MM ---
Reason for Exam: Screening (asymptomatic). Last mammogram was performed 1 year(s) and 2 month(s) ago. Patient History: Menarche at age 13. First Full-Term at age 26. Left ovary removed at age 62. Right ovary removed at age 62. Hysterectomy at age 62. Postmenopausal. Patient has history of breast feeding. Benign Excisional Biopsy on the right side. Paternal grandmother had breast cancer, age 50. Maternal grandmother had breast cancer, age 50. Risk Values: Kathi 5 year model risk: 2.0%. NCI Lifetime model risk: 6.7%. Prior Study Comparison: 09/22/2021 Bilateral Screening Mammogram, [facility]. 09/27/2022 Bilateral MG screening mammo w CAD, [facility]. 12/06/2023 Bilateral MG 3D screening mammo w/cad, [facility]. Tissue Density: There are scattered areas of fibroglandular density. Findings: Analyzed By CAD. There are small scattered benign-appearing round calcifications redemonstrated throughout the bilateral breasts. There is no suspicious group of microcalcifications or new suspicious mass in either breast. Overall Assessment: Benign, BI-RAD 2 Management: Screening Mammogram of both breasts in 1 year. . Patient should continue monthly self-breast exams. A clinical breast exam by your physician is recommended on an annual basis. This exam should not preclude additional follow-up of suspicious palpable abnormalities. Note on Kathi scores and lifetime risk: 1. A Kathi score greater than 3% is considered moderate risk. If this is the case, consider specialist referral to assess eligibility for a risk reducing agent. 2. If overall lifetime risk for the development of breast cancer is 20% or higher, the patient may qualify for future screening with alternating mammogram and breast MRI. [facility], , 01/19/2025 12:09 PM. Electronically signed and approved by: Rhett Hercules M.D.
--- NOTE | 2025-01-19 12:21 | BD ---
EXAMINATION TYPE: Axial Bone Density DATE OF EXAM: 01/19/2025 CLINICAL HISTORY: 69 years old Female. ICD-10 CODE: M8589 DISORDER OF BONE , Additional History: Height: 68 Weight: 235 FRAX RISK QUESTIONS: Secondary Osteoporosis: RISK FACTORS HISTORY OF: MEDICATIONS: EXAM MEASUREMENTS: Bone mineral densitometry was performed using the [employer] System. Bone mineral density as measured about the Lumbar spine is: ----- L1-L4(G/cm2): 1.479 T Score Values are as follows: ----- L1: 1.7 ----- L2: 2.2 ----- L3: 2.8 ----- L4: 2.9 ----- L1-L4: 2.5 Z Score Values are as follows: ----- L1: 2.2 ----- L2: 2.7 ----- L3: 3.3 ----- L4: 3.4 ----- L1-L4: 3.0 Bone mineral density has: Decreased -0.5% since study of: 06-12-22 Bone mineral density about the R hip (g/cm2): 1.116 Bone mineral density about the L hip (g/cm2): 1.196 T Score values are as follows: -----R Neck: -0.2 -----L Neck: 0.5 -----R Total: 0.9 -----L Total: 1.5 Z Score values are as follows: -----R Neck: 0.7 -----L Neck: 1.3 -----R Total: 1.4 -----L Total: 2.0 Bone mineral density has: Increased 1.7% since study of: 06-12-22 FRAX%s: The graph provided illustrates a 6.7% chance for a major osteoporotic fx and a 0.3% chance fo r the hips probability for fx in 10 years time. IMPRESSION: Normal (Values between +1 and -1 indicate normal bone mass). Consider repeating this study in 5 year s or sooner if there is some new clinical indication. NOTE: T-SCORE=SD OF THE YOUNG ADULT MEAN. [facility], , 01/19/2025 12:19 PM
== END | disposition home or self-care (01) ==
LOC: RADMAMWWP 11:31
PROVIDERS: ATTEND Family Medicine
DX: Z12.31 Encounter for screening mammogram for malignant neoplasm of breast (principal); M85.89 Other specified disorders of bone density and structure, multiple sites; R92.323 Mammographic fibroglandular density, bilateral breasts; R92.1 Mammographic calcification found on diagnostic imaging of breast; Z78.0 Asymptomatic menopausal state; Z80.3 Family history of malignant neoplasm of breast
CPT/HCPCS: 77063; 77067; 77080